=== PATIENT | male | born 1955 | race Caucasian/White ===

== ENCOUNTER 2017-06-08 15:55 | Inpatient (IN) | payer OTHER ==
[~2017-06-08] VITALS: Ht 182.9 cm; Wt 72.3 kg
[~2017-06-08 15:55] MED LIST: OMEP20CA59 PO
[2017-06-08] MEDS ORDERED: DILTIAZEM BOLUS / DRIP IV STA (16:12)
[2017-06-08 16:29] LABS: BASO % 0.3 %; BASO ABS # 0.03 K/uL (0-0.2); EOS % 0.3 %; EOS ABS # 0.03 K/uL (0-0.5); HEMATOCRIT 45.2 % (42-52); HEMOGLOBIN 15.5 g/dL (14.0-18.0); IG# 0.02 K/uL (0.00-0.02); LYMPH % 27.4 %; LYMPH ABS # 2.93 K/uL (1.2-3.4); MEAN CELL VOLUME 91.5 fL (80-100); MEAN CORPUSCULAR HEMOGLOBIN 31.4 pg (25-34); MEAN CORPUSCULAR HGB CONC 34.3 g/dl (32-36); MONO % 13.6 %; MONO ABS # 1.45 K/uL (0.11-0.59); NEUT % 58.2 %; NEUT ABS # 6.24 K/uL (1.4-6.5); PLATELET COUNT 311 K/uL (130-400)
[2017-06-08] MEDS ORDERED: DILTIAZEM BOLUS FROM BAG IV ONE (16:30)
[2017-06-08] MEDS: DILTIAZEM HCL INJ 125 MG in DEXTROSE 5% 100ML IV PRN ×2 (16:31→23:07)
--- NOTE | 2017-06-08 16:36 | DIAGNOSTIC IMAGING REPORT ---
CHEST ONE VIEW PORTABLE CLINICAL HISTORY: Chest pain. Shortness of breath. COMPARISON STUDY: No previous studies for comparison. FINDINGS: Lung volumes are normal. There are small bilateral pleural effusions. There is no pneumothorax. There is mild interstitial thickening which suggests pulmonary edema. There is no consolidation to suggest pneumonia. There is mild cardiomegaly. IMPRESSION: Mild pulmonary edema and small bilateral pleural effusions. Electronically signed by: Schuyler Vera M.D. 06/08/2017 4:34 PM Dictated Date/Time: 06/08/2017 4:34 PM
[2017-06-08] MEDS ORDERED: ASPI81TA28 PO (16:39)
[2017-06-08] MEDS ORDERED: PRLSR20 PO (16:39)
[2017-06-08] MEDS ORDERED: ATOR10TA82 PO (16:39)
[2017-06-08 16:54] LABS: CALCIUM 8.6 mg/dl (8.5-10.1); CREATININE 1.33 mg/dl (0.60-1.40); POTASSIUM 3.4 mmol/L (3.5-5.1)
[2017-06-08 16:59] LABS: CKMB 10.8 ng/ml (0.5-3.6)
[2017-06-08] MEDS ORDERED: DILTIAZEM HCL 5 MG/ML 5 ML VIAL IV STA (17:12)
[2017-06-08 18:34] LABS: INR 1.2 (0.9-1.1); PTT PATIENT 27.3 SECONDS (21.0-31.0)
[2017-06-08] MEDS ORDERED: NITROGLYCERIN 0.4 MG SL PER TAB CHARGE SL PRN (18:45)
[2017-06-08] MEDS ORDERED: ACETAMINOPHEN 325 MG TAB PO PRN (18:45)
[2017-06-08] MEDS ORDERED: POLYETHYLENE (MIRALAX) 17 GM PACK PO PRN (18:45)
[2017-06-08] MEDS ORDERED: METOPROLOL TARTRATE 1 MG/ML VIAL IV STA (18:53)
[2017-06-08] MEDS ORDERED: POTASSIUM CHLORIDE 20 MEQ TABCR PO ONE (19:00)
[2017-06-08] MEDS ORDERED: POTASSIUM CHLORIDE 10 MEQ TABCR PO STA (19:06)
[2017-06-08 19:28] LABS: INFLUENZA B ANTIGEN Neg for Influ B (NEG)
[2017-06-08] MEDS ORDERED: DILTIAZEM BOLUS / DRIP IV SCH (19:56)
--- NOTE | 2017-06-08 20:09 | History and Physical ---
History & Physical Date & Time of Service: Jun 08, 2017 at 19:11 Chief Complaint: Sob, Upset Stomach, Swollen Feet, Tachycardia Primary Care Physician: Riccardo Michel M.D. (MEDICAL) History of Present Illness Source: patient, clinic records, hospital records Pt is 62 y/o M with PMH dyslipidemia, GERD presented to ER from PCP's office for tachycardia. States yesterday woke up with palpitations and heart racing sensation that was continuous. Symptoms continued today. 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 Reports some anterior chest pressure. Reports increased CP and SOB with lying supine. Last night had to sleep sitting up secondary to SOB. Denies dizziness or syncope. Also c/o nausea since yesterday, no vomiting. States yesterday had 2 loose BM's , today reports normal BM. Denies melena or hematochezia or abdominal pain. Reports non-productive cough past 3 days. Woke up this morning and noticed bilateral foot edema. Pt with 8 pound weight gain over past month. Feels hasn't been urinating as much past 2 days. Denies cardiac or pulmonary problems in past. Drinking 4-5 bottles water daily. States normal appetite. Drinks 2 cups coffee daily. Has been taking mucinex past couple of days for cough. Denies ETOH use. Stopped smoking one week ago. Was smoking 4 cigarettes daily. Denies fever/chills, diaphoresis, KIMBALL, dizziness, syncope, vision changes, neck pain, hemoptysis, sore throat, choking, otalgia, rhinorrhea, paresthesias,rashes. In ER pt found to be in rapid a-fib rate 130's to 180's down to 130's after cardizem. Pt given cardizem 10mg, additional 10mg and on cardizem drip at 15/ hr. BP: 160/107 to 163/76 to 146/113. O2 sat initially 95% on RA, then to 90%, up to 94% on 3L NC. troponin 0.02. Since in ER and having decreased HR on Cardizem drip, pt states the CP and nausea has resolved Past Medical/Surgical History Medical Problems: (1) Dyslipidemia Status: Chronic (2) GERD (gastroesophageal reflux disease) Status: Chronic Surgical Problems: (1) H/O cataract removal with insertion of prosthetic lens Permanent Comment: left eye Status: Resolved (2) History of repair of retinal defect by laser photocoagulation Permanent Comment: left eye - 2009, right eye - 2012 Status: Resolved (3) Hx of appendectomy Status: Resolved (4) Hx of tonsillectomy Status: Resolved Family History FH: cardiovascular disease (Pt states brother with cardiac disorder, unsure) Hypertension Social History Smoking Status: Former Smoker (quit last week. smoked 4 cig/day for 50 years) Smokeless Tobacco Use: No Alcohol Use: none Drug Use: none Housing status: lives alone Occupational Status: employed Multi-Drug Resistant Organisms History of MDRO: No Allergies Coded Allergies: No Known Allergies (Unverified , 06/08/17) Home Medications Scheduled Aspirin (Aspirin Ec), 81 MG PO DAILY Atorvastatin (Lipitor), 10 MG PO DAILY Omeprazole (Prilosec), 20 MG PO DAILY Review of Systems Constitutional: No fever, No chills, No sweats Eyes: No worsening of vision, No eye pain, No redness, No discharge, No diplopia ENT: No unusual epistaxis, No nasal symptoms, No sore throat, No trouble swallowing Respiratory: + problem reported (see HPI) Cardiovascular: + problem reported (see HPI) Abdomen: + problem reported (see HPI) Musculoskeletal: No joint pain, No calf pain Genitourinary - Male: No hematuria, No dysuria, No urinary urgency Neurologic: No numbness/tingling, No vertigo Psychiatric: No depression symptoms, No anxiety Endocrine: No excessive thirst, No excessive urination Hematologic / Lymphatic: No abnormal bleeding/bruising, No clotting problems, No night sweats Integumentary: No rash, No itch Physical Exam Vital Signs Date Time Temp Pulse Resp B/P (MAP) Pulse Ox O2 Delivery O2 Flow Rate FiO2 06/08/17 17:59 148 20 147/121 93 Nasal Cannula 3.0 06/08/17 17:31 135 16 163/76 93 Nasal Cannula 3.0 06/08/17 16:58 155 160/90 94 Nasal Cannula 3.0 06/08/17 16:36 93 Nasal Cannula 3.0 06/08/17 16:35 90 Room Air 06/08/17 16:32 157 16 135/106 94 Room Air 06/08/17 16:32 94 Room Air 06/08/17 16:11 185 06/08/17 15:58 36.3 139 22 161/107 95 Room Air General Appearance: WD/WN, no apparent distress Head: normocephalic, atraumatic Eyes: normal inspection, PERRL, EOMI, sclerae normal ENT: hearing grossly normal, pharynx normal, + pertinent finding (slightly dry mucous membranes) Neck: supple, trachea midline Respiratory/Chest: chest non-tender, no respiratory distress, no accessory muscle use, + decreased breath sounds (bases bilaterally) Cardiovascular: + tachycardia, + irregularly irregular Abdomen/GI: normal bowel sounds, non tender, soft Extremities/Musculoskelatal: no calf tenderness, normal capillary refill, normal range of motion, non-tender, + pedal edema (2+ pitting edema pretibial bilaterally) Neurologic/Psych: alert, normal mood/affect, oriented x 3 Skin: warm/dry, + pertinent finding (+exoriations to left anterior upper chest/ shoulder and upper back (pt states scratched himself). no surrounding erythema, no discharge) Diagnostics Laboratory Results Results Past 24 Hours Test 06/08/17 16:15 06/08/17 18:48 Range/Units White Blood Count 10.70 4.8-10.8 K/uL Red Blood Count 4.94 4.7-6.1 M/uL Hemoglobin 15.5 14.0-18.0 g/dL Hematocrit 45.2 42-52 % Mean Corpuscular Volume 91.5 80-100 fL Mean Corpuscular Hemoglobin 31.4 25-34 pg Mean Corpuscular Hemoglobin Concent 34.3 32-36 g/dl Platelet Count 311 130-400 K/uL Mean Platelet Volume 11.0 7.4-10.4 fL Neutrophils (%) (Auto) 58.2 % Lymphocytes (%) (Auto) 27.4 % Monocytes (%) (Auto) 13.6 % Eosinophils (%) (Auto) 0.3 % Basophils (%) (Auto) 0.3 % Neutrophils # (Auto) 6.24 1.4-6.5 K/uL Lymphocytes # (Auto) 2.93 1.2-3.4 K/uL Monocytes # (Auto) 1.45 0.11-0.59 K/uL Eosinophils # (Auto) 0.03 0-0.5 K/uL Basophils # (Auto) 0.03 0-0.2 K/uL RDW Standard Deviation 47.0 36.4-46.3 fL RDW Coefficient of Variation 14.0 11.5-14.5 % Immature Granulocyte % (Auto) 0.2 % Immature Granulocyte # (Auto) 0.02 0.00-0.02 K/uL Prothrombin Time 12.9 9.0-12.0 SECONDS Prothromb Time International Ratio 1.2 0.9-1.1 Activated Partial Thromboplast Time 27.3 21.0-31.0 SECONDS Partial Thromboplastin Ratio 1.1 Sodium Level 138 136-145 mmol/L Potassium Level 3.4 3.5-5.1 mmol/L Chloride Level 103 98-107 mmol/L Carbon Dioxide Level 24 21-32 mmol/L Anion Gap 11.0 3-11 mmol/L Blood Urea Nitrogen 18 7-18 mg/dl Creatinine 1.33 0.60-1.40 mg/dl Est Creatinine Clear Calc Drug Dose 62.4 ml/min Estimated GFR () 65.5 Estimated GFR (Non- 56.5 BUN/Creatinine Ratio 13.4 10-20 Random Glucose 110 70-99 mg/dl Calcium Level 8.6 8.5-10.1 mg/dl Total Creatine Kinase 627 39-308 U/L Creatine Kinase MB 10.8 0.5-3.6 ng/ml Creatine Kinase MB Ratio 1.7 0-3.0 Troponin I 0.022 0-0.045 ng/ml Diagnostic Radiology CXR: IMPRESSION: Mild pulmonary edema and small bilateral pleural effusions. EKG EKG: atrial fibrillation, RVR, rate 178 Impression Assessment and Plan ATRIAL FIBRILLATION RVR new onset a-fib. symptoms started yesterday with palpitations, SOB, CP, nausea. HR 130's-180's in ER. Given 2 Cardizem 10mg bolus and on Cardizem drip at 15mg/hr and HR in 130's. pt reports no further CP or nausea and decreased SOB. negative initial troponin, suspect CP from rapid a-fib -Lopressor 5mg IV ordered, may need further lopressor - will monitor -continue Cardizem drip -trend troponin -magnesium and TSH labs added -heparin drip -echo -cardiology consult FLUID OVERLOAD Pt started with orthopnea, SOB yesterday. today noticed LE edema. pt with non- productive cough x 3 days. Weight gain of 8lbs past month. CXR: mild pulmonary edema, small bilateral effusions -echo -monitor I&O's and daily weight -cardiology consult -continue to monitor potassium, consider lasix dosage later -monitor prp HYPOKALEMIA K: 3.4 -replace -monitor prp DYSLIPIDEMIA Lipid panel 04/2017 - total: 116, LDL: 65, HDL: 34, Triglycerides: 87 -continue statin GERD -continue PPI DVT Prophylaxis -on heparin drip Disposition admit tele Full Code as per discussion with pt Follows with Dr Michel for routine care Pt was seen with Dr Webster. See addendum Level of Care Telemetry Resuscitation Status FULL RESUSCITATION VTE Prophylaxis VTE Risk Assessment Done? Y/N: Yes Risk Level: Moderate Given or contraindicated: Other Anticoagulation Note ATTENDING ADDENDUM Record reviewed. Patient interviewed and examined. Care coordinated with Mallika Keith PA-C. Please refer to her documentation for patient's history. Briefly, 62-year-old male with history of dyslipidemia and GERD. Developed chest pressure, palpitations, and dyspnea yesterday. Symptoms worse today. No prior history of cardiac disease. EXAM: General-no acute distress VS- as noted HEENT-anicteric Lungs-few bibasilar rales Cardiovascular-irregularly irregular, tachycardic; no murmur or gallop appreciated; + JVD; 1+ pretibial/pedal edema Abdomen-soft, nontender Extremities-no cyanosis or clubbing; no calf tenderness Neuro-alert . DATA: K 3.4. Other lab studies as noted. Chest x-ray demonstrated pulmonary vascular congestion and small bilateral pleural effusions. EKG performed at 1609 reviewed and demonstrated atrial fibrillation with a ventricular rate of 180/minute, slight ST depression inferior laterally, nonspecific T-wave changes. ASSESSMENT AND PLAN: New onset atrial fibrillation. Patient first noticed symptoms yesterday, but difficult to ascertain exact onset of arrhythmia. Started on intravenous diltiazem in the ED with some slowing of ventricular rate. Received a dose of intravenous metoprolol with further slowing of rate. IV heparin. Serum potassium 3.4; magnesium and TSH normal. Denies alcohol consumption. Correct hypokalemia. CHF possibly tachycardia-mediated. IV furosemide x 1 dose this evening. Check echocardiogram. Consult Cardiology. Please refer to JU Maloney's documentation for discussion of other issues. Bro Webster MD . Additional Copies To Riccardo Michel M.D. (MEDICAL)
[2017-06-08 20:17] VITALS: BP 124/99; PULSE 110; TEMP 36.7; O2SAT 93; Ht 182.9 cm; Wt 72.3 kg
[2017-06-08] MEDS ORDERED: IV FLUIDS COMPLETED PRN (21:00)
[2017-06-08] MEDS ORDERED: HEPARIN IV BOLUS 7,000 UNIT in SYRINGE 0 ML IV ONE (21:15)
--- NOTE | 2017-06-08 21:24 | EMERGENCY ROOM VISIT NOTE ---
History Report prepared by Gus: [place] Under the Supervision of: Dr. Wale Saldivar D.O. First contact with patient: 16:04 Chief Complaint: TACHYCARDIA Stated Complaint: SOB, UPSET STOMACH, SWOLLEN FEET, TACHYCARDIA History of Present Illness The patient is a 62 year old male who presents to the Emergency Room with complaints of chest pain and a tachycardic heart rate that began yesterday. The patient states that he can feel his heart racing and pain in his chest when he lays flat. The pain in not present currently, and only onsets when lays completely flat. He is also complaining of shortness of breath. The patient also notes that his feet are significantly swollen as compared to his baseline. The patient denies any history of an irregular heart beat or congestive heart failure. He also denies headache, change in vision, fevers, nausea, vomiting, diarrhea, pain with urination, and melena. Source of History: patient Onset: Yesterday Position: chest Modifying Factors (Worsening): other (Laying flat) Associated Symptoms: + chest pain, + SOB, No vomiting, No diarrhea, No urinary symptoms Note: Feet swollen. Review of Systems See HPI for pertinent positives & negatives. A total of 10 systems reviewed and were otherwise negative. Past Medical & Surgical Medical Problems: (1) Atrial fibrillation with RVR (2) Dyslipidemia (3) GERD (gastroesophageal reflux disease) Surgical Problems: (1) H/O cataract removal with insertion of prosthetic lens (2) History of repair of retinal defect by laser photocoagulation (3) Hx of appendectomy (4) Hx of tonsillectomy Hx of eye surgery Family History omitted secondary to age. Social History Smoking Status: Former Smoker Alcohol Use: none Occupation Status: employed Current/Historical Medications Scheduled Aspirin (Aspirin Ec), 81 MG PO DAILY Atorvastatin (Lipitor), 10 MG PO DAILY Omeprazole (Prilosec), 20 MG PO DAILY Allergies Coded Allergies: No Known Allergies (Unverified , 06/08/17) Physical Exam Vital Signs Date Time Temp Pulse Resp B/P (MAP) Pulse Ox O2 Delivery O2 Flow Rate FiO2 06/08/17 17:59 148 20 147/121 93 Nasal Cannula 3.0 06/08/17 17:31 135 16 163/76 93 Nasal Cannula 3.0 06/08/17 16:58 155 160/90 94 Nasal Cannula 3.0 06/08/17 16:36 93 Nasal Cannula 3.0 06/08/17 16:35 90 Room Air 06/08/17 16:32 157 16 135/106 94 Room Air 06/08/17 16:32 94 Room Air 06/08/17 16:11 185 06/08/17 15:58 36.3 139 22 161/107 95 Room Air Physical Exam GENERAL: Sitting up in bed, alert, chronically-ill appearing. Talking in full sentences. EYE EXAM: normal conjunctiva. OROPHARYNX: no exudate, no erythema, lips, buccal mucosa, and tongue normal and mucous membranes are moist NECK: supple, no nuchal rigidity, no adenopathy, non-tender. No JVD. LUNGS: Clear to auscultation. Normal chest wall mechanics HEART: no murmurs, S1 normal and S2 normal. Patient is tachycardic and irregularly irregular. ABDOMEN: abdomen soft, non-tender, normo-active bowel sounds, no masses, no rebound or guarding. BACK: Back is symmetrical on inspection and there is no deformity, no midline tenderness, no CVA tenderness. SKIN: no rashes and no bruising UPPER EXTREMITIES: upper extremities are grossly normal. LOWER EXTREMITIES: Pitting edema is present bilaterally. NEURO EXAM: Normal sensorium, cranial nerves II-XII grossly intact, normal speech, no gross weakness of arms, no gross weakness of legs. Medical Decision & Procedures ER Provider Diagnostic Interpretation: Radiology results as stated below per my review and the radiologist's interpretation: CHEST ONE VIEW PORTABLE CLINICAL HISTORY: Chest pain. Shortness of breath. COMPARISON STUDY: No previous studies for comparison. FINDINGS: Lung volumes are normal. There are small bilateral pleural effusions. There is no pneumothorax. There is mild interstitial thickening which suggests pulmonary edema. There is no consolidation to suggest pneumonia. There is mild cardiomegaly. IMPRESSION: Mild pulmonary edema and small bilateral pleural effusions. Electronically signed by: Schuyler Vera M.D. 06/08/2017 4:34 PM Dictated Date/Time: 06/08/2017 4:34 PM Laboratory Results 06/08/17 16:15 Red Blood Count 4.94, Mean Corpuscular Volume 91.5, Mean Corpuscular Hemoglobin 31.4, Mean Corpuscular Hemoglobin Concent 34.3, Mean Platelet Volume 11.0, Neutrophils (%) (Auto) 58.2, Lymphocytes (%) (Auto) 27.4, Monocytes (%) (Auto) 13.6, Eosinophils (%) (Auto) 0.3, Basophils (%) (Auto) 0.3, Neutrophils # (Auto ) 6.24, Lymphocytes # (Auto) 2.93, Monocytes # (Auto) 1.45, Eosinophils # (Auto ) 0.03, Basophils # (Auto) 0.03 06/08/17 16:15 Test 06/08/17 16:15 White Blood Count 10.70 K/uL (4.8-10.8) Red Blood Count 4.94 M/uL (4.7-6.1) Hemoglobin 15.5 g/dL (14.0-18.0) Hematocrit 45.2 % (42-52) Mean Corpuscular Volume 91.5 fL (80-100) Mean Corpuscular Hemoglobin 31.4 pg (25-34) Mean Corpuscular Hemoglobin Concent 34.3 g/dl (32-36) Platelet Count 311 K/uL (130-400) Mean Platelet Volume 11.0 fL (7.4-10.4) Neutrophils (%) (Auto) 58.2 % Lymphocytes (%) (Auto) 27.4 % Monocytes (%) (Auto) 13.6 % Eosinophils (%) (Auto) 0.3 % Basophils (%) (Auto) 0.3 % Neutrophils # (Auto) 6.24 K/uL (1.4-6.5) Lymphocytes # (Auto) 2.93 K/uL (1.2-3.4) Monocytes # (Auto) 1.45 K/uL (0.11-0.59) Eosinophils # (Auto) 0.03 K/uL (0-0.5) Basophils # (Auto) 0.03 K/uL (0-0.2) RDW Standard Deviation 47.0 fL (36.4-46.3) RDW Coefficient of Variation 14.0 % (11.5-14.5) Immature Granulocyte % (Auto) 0.2 % Immature Granulocyte # (Auto) 0.02 K/uL (0.00-0.02) Prothrombin Time 12.9 SECONDS (9.0-12.0) Prothromb Time International Ratio 1.2 (0.9-1.1) Activated Partial Thromboplast Time 27.3 SECONDS (21.0-31.0) Partial Thromboplastin Ratio 1.1 Anion Gap 11.0 mmol/L (3-11) Est Creatinine Clear Calc Drug Dose 62.4 ml/min Estimated GFR () 65.5 Estimated GFR (Non- 56.5 BUN/Creatinine Ratio 13.4 (10-20) Calcium Level 8.6 mg/dl (8.5-10.1) Magnesium Level 1.9 mg/dl (1.8-2.4) Total Creatine Kinase 627 U/L (39-308) Creatine Kinase MB 10.8 ng/ml (0.5-3.6) Creatine Kinase MB Ratio 1.7 (0-3.0) Troponin I 0.022 ng/ml (0-0.045) Thyroid Stimulating Hormone (TSH) 2.610 uIu/ml (0.300-4.500) Laboratory results per my review. Medications Administered Medications (Trade) Dose Ordered Sig/Bruce Route Start Time Stop Time Status Last Admin Dose Admin Diltiazem HCl (Cardizem Bolus From Bag) 10 mg ONE ONCE IV 06/08/17 16:30 06/08/17 16:31 DC 06/08/17 16:30 10 MG Diltiazem HCl 125 mg/Dextrose 125 ml @ 0 mls/hr Q0M PRN IV 06/08/17 16:30 07/08/17 16:29 06/08/17 16:31 5 MLS/HR Diltiazem HCl (Cardizem Inj) 10 mg NOW STAT IV 06/08/17 17:12 06/08/17 17:13 DC 06/08/17 17:27 10 MG ECG Per My Interpretation Indication: tachycardia Rate (beats per minute): 178 Rhythm: atrial fibrillation, other (With RVR) Findings: nonspecific-ST abn (Diffusely), other (Normal [place], ) ED Course ED COURSE: Vital signs were reviewed and showed tachycardic The patients medical record was reviewed The above diagnostic studies were performed and reviewed. ED treatments and interventions as stated above. 1605: The patient was evaluated in room B12. A complete history and physical examination was performed. 1612: Ordered Diltiazem HCl 1 IV. 1630: Ordered Diltiazem 10 mg IV. 1712: Ordered Diltiazem HCl 10 mg IV. 1734: I discussed the case with Dr. Darin Curiel at this time. He will evaluate the patient for further treatment. []: Upon reevaluation, the patient is [].I discussed my findings with the [ patient] and [] understands and agrees with the treatment plan. Based on the patients age, coexisting illnesses, exam and lab findings the decision to treat as an [inpatient][outpatient] was made. The patient remained stable while under my care. [The patient appeared well at the time of discharge.] [The patient will be evaluated for further management.] Medical Decision Differential diagnoses includes but is not limited to acute coronary syndrome, atrial fibrillation, myocardial infarction, pericarditis, pulmonary embolus, aortic dissection, pneumonia, pneumothorax, musculoskeletal, shingles, esophageal. Patient is a 62-year-old male who presents to the ER with palpitations and feeling short of breath and chest pain when laying flat. EKG shows A. fib with RVR and heart rate in the 180s. CBC along with BMP was unremarkable. Troponin was detectable but negative. TSH was normal. Patient was given fluids. He was given Cardizem drip and bolus. Cardizem drip was titrated up to 15. He was re-bolused with Cardizem. Heart rate eventually trended down to the 120s- 130s. Patient rested comfortably. He was given fluids. He was updated at bedside. He was admitted to internal medicine with A. fib with RVR. Medication Reconcilliation Current Medication List: was personally reviewed by me Blood Pressure Screening Patient's blood pressure: Elevated blood pressure Referred to hospitalist Consults Time Called: [phone] Consulting Physician: Dr. Darin Curiel Returned Call: [phone] I discussed the case with Dr. Darin Curiel at this time. He will evaluate the patient for further treatment. Impression Primary Impression: Atrial fibrillation with RVR Critical Care I have personally spent 55 minutes of critical care time in the direct management of this patient. This includes bedside care, interpretation of diagnostic studies, and testing, discussion with consultants, patient, and family members, and other required patient management activities. This 55 minutes is in excess of all separately billable procedures. Scribe Attestation The scribe's documentation has been prepared under my direction and personally reviewed by me in its entirety. I confirm that the note above accurately reflects all work, treatment, procedures, and medical decision making performed by me. Departure Information Dispostion Being Evaluated By Hospitalist Referrals Riccardo Michel M.D. (MEDICAL) (PCP) Patient Instructions My [facility]
[2017-06-08] MEDS: HEPARIN 25,000 UNIT/500ML D5W 500 ML IV PRN (22:02)
[2017-06-08] MEDS ORDERED: FUROSEMIDE INJ 20 MG in SYRINGE 0 ML IV ONE (23:30)
[2017-06-08 23:58] VITALS: BP 95/73; PULSE 90; TEMP 36.8; O2SAT 90
[2017-06-08 23:59] VITALS: O2SAT 90
[2017-06-09] VITALS (15 sets, daily range): BP systolic 92–166; BP diastolic 60–91; PULSE 58–124; TEMP 36.8–37.2; O2SAT 90–98
[2017-06-09 05:03] LABS: HEMATOCRIT 40.8 % (42-52); HEMOGLOBIN 13.7 g/dL (14.0-18.0); MEAN CELL VOLUME 92.3 fL (80-100); MEAN CORPUSCULAR HGB CONC 33.6 g/dl (32-36); MEAN PLATELET VOLUME 11.7 fL (7.4-10.4); PLATELET COUNT 268 K/uL (130-400); RED CELL DISTRIBUTION WIDTH CV 13.9 % (11.5-14.5); RED CELL DISTRIBUTION WIDTH SD 46.4 fL (36.4-46.3); WHITE BLOOD COUNT 8.88 K/uL (4.8-10.8)
[2017-06-09 05:05] LABS: CREATININE 1.12 mg/dl (0.60-1.40); POTASSIUM 3.8 mmol/L (3.5-5.1)
[2017-06-09 05:31] LABS: PTT PATIENT 51.2 SECONDS (21.0-31.0)
[2017-06-09] MEDS: HEPARIN 25,000 UNIT/500ML D5W 500 ML IV PRN (06:59)
[2017-06-09] MEDS: DILTIAZEM HCL INJ 125 MG in DEXTROSE 5% 100ML IV PRN ×4 (08:17→21:57)
[2017-06-09] MEDS: PANTOprazole SOD 40 MG TAB PO SCH (08:20)
[2017-06-09] MEDS: ASPIRIN 81 MG ECTAB PO SCH (08:20)
[2017-06-09] MEDS: ATORVASTATIN 10 MG TAB PO SCH (08:20)
--- NOTE | 2017-06-09 08:51 | ECHOCARDIOGRAM REPORT ---
*NOTICE TO RECEIVING [facility] This information is strictly Confidential and protected under [place] law. [place] law prohibits you from making any further disclosure of this information unless further disclosure is expressly permitted by the written consent of the person to whom it pertains or is authorized by law. A general authorization for the release of medical or other information is not sufficient for this purpose. Hospital accepts no responsibility if the information is made available to any other person, INCLUDING THE PATIENT. Interpretation Summary * Name: OPAL BOWEN Study Date: 06/09/2017 07:02 AM BP: 106/70 mmHg * Patient Location: [facility] HR: 88 * : 1955 (M/d/yyyy) Gender: Male Height: 72 in * Age: 62 yrs Ethnicity: [place] Weight: 191 lb * Ordering Physician: Mallika Maloney * Referring Physician: Self, Referred * Performed By: Asuncion Brewer RDCS * * Reason For Study: A-fib * BSA: 2.1 m2 * -- Conclusions -- * Mildly dilated LV chamber size with normal wall thickness. * Severely reduced LV systolic function with severe global hypokinesis, EF 25-30%. * Normal RV chamber size with reduced systolic function by TAPSE. * Moderate mitral regurgitation. * Moderate tricuspid regurgitation. * Mild biatrial enlargement. Procedure Details * A complete two-dimensional transthoracic echocardiogram was performed (2D, M-mode, Doppler and color flow Doppler). Left Ventricle * The left ventricle is mildly dilated. * There is normal left ventricular wall thickness. * Ejection Fraction = 25-30%. * Left ventricular systolic function is severely reduced. * There is severe global hypokinesis of the left ventricle. Right Ventricle * The right ventricular cavity size is normal (basal dimension <4.2 cm in right ventricular apical 4-chamber view). * The right ventricular systolic function is reduced as assessed by tricuspid annular plane systolic excursion (TAPSE) (TAPSE <1.6 cm). Atria * The left atrium is mildly dilated. * The right atrium is mildly dilated. * No ASD detected; PFO is not assessed. * The interatrial septum bows toward right atrium consistent with elevated left atrial pressure. Mitral Valve * The mitral valve anatomy is normal. * There is no mitral valve stenosis. * There is moderate mitral regurgitation. Tricuspid Valve * The tricuspid valve anatomy is normal. * There is no tricuspid stenosis. * There is moderate tricuspid regurgitation. Aortic Valve * The aortic valve is normal in structure and function. Pulmonic Valve * The pulmonary valve is not well seen, but the Doppler examination is normal without significant regurgitation or stenosis. Great Vessels * The aortic root and proximal ascending aorta are normal sized. Pericardium/Pleural * There is no pericardial effusion. MMode 2D Measurements and Calculations IVSd 0.70 cm LVIDd 5.7 cm LVIDs 4.9 cm LVPWd 1.0 cm IVS/LVPW 0.70 FS 14.2 % EDV(Teich) 160.8 ml ESV(Teich) 112.9 ml EF(Teich) 29.8 % EDV(cubed) 186.3 ml ESV(cubed) 117.8 ml EF(cubed) 36.8 % LV mass(C)d 185.1 grams LV mass(C)dI 88.6 grams/m\S\2 SV(Teich) 47.8 ml SI(Teich) 22.9 ml/m\S\2 SV(cubed) 68.5 ml SI(cubed) 32.8 ml/m\S\2 Ao root diam 3.1 cm Ao root area 7.3 cm\S\2 ACS 1.9 cm LA dimension 4.2 cm asc Aorta Diam 2.4 cm LA/Ao 1.4 LVOT diam 2.0 cm LVOT area 3.1 cm\S\2 LVAd ap4 31.6 cm\S\2 LVLd ap4 7.4 cm EDV(MOD-sp4) 108.9 ml EDV(sp4-el) 115.0 ml LVAs ap4 26.1 cm\S\2 LVLs ap4 7.0 cm ESV(MOD-sp4) 80.7 ml ESV(sp4-el) 82.7 ml EF(MOD-sp4) 25.9 % EF(sp4-el) 28.1 % LVAd ap2 35.6 cm\S\2 LVLd ap2 8.7 cm EDV(MOD-sp2) 126.0 ml EDV(sp2-el) 123.3 ml LVAs ap2 28.8 cm\S\2 LVLs ap2 7.7 cm ESV(MOD-sp2) 93.4 ml ESV(sp2-el) 92.1 ml EF(MOD-sp2) 25.8 % EF(sp2-el) 25.3 % LVLd %diff 15.2 % EDV(MOD-bp) 123.0 ml LVLs %diff 8.9 % ESV(MOD-bp) 90.8 ml EF(MOD-bp) 26.2 % SV(MOD-sp4) 28.2 ml SI(MOD-sp4) 13.5 ml/m\S\2 SV(MOD-sp2) 32.6 ml SI(MOD-sp2) 15.6 ml/m\S\2 SV(MOD-bp) 32.2 ml SI(MOD-bp) 15.4 ml/m\S\2 SV(sp4-el) 32.3 ml SI(sp4-el) 15.5 ml/m\S\2 SV(sp2-el) 31.2 ml SI(sp2-el) 14.9 ml/m\S\2 Doppler Measurements and Calculations MV E max td 77.6 cm/sec MV dec time 0.19 sec Ao V2 max 85.3 cm/sec Ao max PG 2.9 mmHg Ao max PG (full) 1.0 mmHg CASSIA(V,A) 2.5 cm\S\2 CASSIA(V,D) 2.5 cm\S\2 LV V1 max PG 1.9 mmHg LV V1 max 68.9 cm/sec TR max td 230.8 cm/sec
[2017-06-09] MEDS ORDERED: LISINOPRIL 5 MG TAB PO STA (09:24)
[2017-06-09] MEDS ORDERED: APIXABAN 2.5 MG TAB PO ONE (09:30)
--- NOTE | 2017-06-09 09:40 | Cardiology Consultation ---
Cardiology Consultation Date of Service Jun 09, 2017. Cardiology Consultation Indication: Consultation for heart failure and atrial fibrillation History: This is a 62-year-old male patient with no prior history of heart disease. The patient was in his usual state of health until 1-2 weeks ago when he started to notice some shortness of breath with activity. Over the weekend he was having difficulty lying flat. He states that every time he went to lay down he felt like somebody was putting him under water. Yesterday he noticed some lower extremity edema and worsening of his symptoms with tachycardia. Patient then presented to his PCP and was referred to the emergency department where he was found to be in atrial fibrillation with RVR and congestive heart failure. An echocardiogram completed today indicates his estimated left ventricular ejection fraction to be around 30%. The patient has been treated with IV diuretics and rate control with diltiazem. He is currently comfortable. Cardiac markers on admission have been negative. Patient has a history of cigarette smoking but stopped in April. He has no history of diabetes or hypertension. There is no strong family history of heart disease. Allergies: No known medical allergies Reported Home Medications Medications Dose Route/Sig Max Daily Dose Days Date Category Dose Instructions Lipitor (Atorvastatin Calcium) 10 Mg Tab 10 Mg PO DAILY 06/08/17 Reported Aspirin Ec (Aspirin) 81 Mg Tab 81 Mg PO DAILY 06/08/17 Reported Prilosec (Omeprazole) 20 Mg Capcr 20 Mg PO DAILY 06/08/17 Reported TAKE THIS MEDICATION ONCE DAILY 30 MINUTES BEFORE FIRST MEAL OF THE DAY Medical Problems: (1) Atrial fibrillation with RVR (2) Dyslipidemia (3) GERD (gastroesophageal reflux disease) Surgical Problems: (1) H/O cataract removal with insertion of prosthetic lens (2) History of repair of retinal defect by laser photocoagulation (3) Hx of appendectomy (4) Hx of tonsillectomy Social history: The patient stopped smoking several weeks ago. 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 Family history: Noncontributory General: The patient denies weight change, night sweats, fever, chills. Head: The patient denies headache and prior head trauma. Cardiovascular: The patient denies chest pain or chest discomfort, syncope and near syncope. Pulmonary: The patient denies cough, wheeze, pleurisy, hemoptysis, sputum, and excessive snoring. Gastrointestinal: The patient denies nausea, vomiting, diarrhea, constipation, bloating, hematemesis, hematochezia, and abdominal pain. Skin: The patient denies diaphoresis and rash. Musculoskeletal: The patient denies joint pain, joint swelling, myalgia, back pain, neck pain and prior injuries. Neurological: The patient denies prior stroke and seizures Vital Signs Past 12 Hours Date Time Temp Pulse Resp B/P (MAP) Pulse Ox O2 Delivery O2 Flow Rate FiO2 06/09/17 09:06 106 126/89 (101) 06/09/17 08:29 106 130/91 (104) 06/09/17 08:25 108 120/88 (99) 06/09/17 08:19 131/87 (102) 06/09/17 08:18 124 107/73 (84) 06/09/17 07:46 37.0 86 18 131/69 (89) 95 06/09/17 04:00 Room Air 06/09/17 03:30 37.0 88 18 106/70 (82) 92 Room Air 06/08/17 23:59 90 Room Air 06/08/17 23:58 36.8 90 18 95/73 (80) 90 Room Air General Appearance: Alert and Oriented x3. NAD. Head: Normocephalic Atraumatic. Eyes: PERRLA, EOMI, conjunctiva and sclera clear Neck: Supple. No carotid bruits noted. No JVD. No HJD. Respiratory: Breath sounds clear to auscultation bilaterally. No w/r/r. Cardiovascular: Reg rate and rhythm. S1 and S2 noted. No murmurs, rubs, gallops. PMI non displace. Abdomen: Normal bowel sounds, soft nontender. no abdominal bruits. Extremities: No edema, no clubbing or cyanosis. distal pulses 2/4 bilaterally. Neuro: No focal deficits. Psychiatric: Normal affect. Last 24 Hours Test 06/08/17 16:15 06/08/17 18:48 06/09/17 04:38 White Blood Count 10.70 K/uL 8.88 K/uL Red Blood Count 4.94 M/uL 4.42 M/uL Hemoglobin 15.5 g/dL 13.7 g/dL Hematocrit 45.2 % 40.8 % Mean Corpuscular Volume 91.5 fL 92.3 fL Mean Corpuscular Hemoglobin 31.4 pg 31.0 pg Mean Corpuscular Hemoglobin Concent 34.3 g/dl 33.6 g/dl Platelet Count 311 K/uL 268 K/uL Mean Platelet Volume 11.0 fL 11.7 fL Neutrophils (%) (Auto) 58.2 % Lymphocytes (%) (Auto) 27.4 % Monocytes (%) (Auto) 13.6 % Eosinophils (%) (Auto) 0.3 % Basophils (%) (Auto) 0.3 % Neutrophils # (Auto) 6.24 K/uL Lymphocytes # (Auto) 2.93 K/uL Monocytes # (Auto) 1.45 K/uL Eosinophils # (Auto) 0.03 K/uL Basophils # (Auto) 0.03 K/uL RDW Standard Deviation 47.0 fL 46.4 fL RDW Coefficient of Variation 14.0 % 13.9 % Immature Granulocyte % (Auto) 0.2 % Immature Granulocyte # (Auto) 0.02 K/uL Prothrombin Time 12.9 SECONDS Prothromb Time International Ratio 1.2 Activated Partial Thromboplast Time 27.3 SECONDS 51.2 SECONDS Partial Thromboplastin Ratio 1.1 2.0 Sodium Level 138 mmol/L 141 mmol/L Potassium Level 3.4 mmol/L 3.8 mmol/L Chloride Level 103 mmol/L 107 mmol/L Carbon Dioxide Level 24 mmol/L 26 mmol/L Anion Gap 11.0 mmol/L 8.0 mmol/L Blood Urea Nitrogen 18 mg/dl 18 mg/dl Creatinine 1.33 mg/dl 1.12 mg/dl Est Creatinine Clear Calc Drug Dose 62.4 ml/min 74.1 ml/min Estimated GFR () 65.5 80.6 Estimated GFR (Non- 56.5 69.5 BUN/Creatinine Ratio 13.4 15.9 Random Glucose 110 mg/dl 104 mg/dl Calcium Level 8.6 mg/dl 8.0 mg/dl Magnesium Level 1.9 mg/dl Total Creatine Kinase 627 U/L Creatine Kinase MB 10.8 ng/ml Creatine Kinase MB Ratio 1.7 Troponin I 0.022 ng/ml Thyroid Stimulating Hormone (TSH) 2.610 uIu/ml Influenza Type A Antigen Neg for Influ A Influenza Type B Antigen Neg for Influ B Impression: 1. Atrial fibrillation with RVR 2. Congestive heart failure 3. Idiopathic cardiomyopathy 4. History of cigarette smoking Recommendations: The patient should be placed on guideline directed medications for heart failure. His rate is currently being controlled with diltiazem however, I will start a low dose beta bryan with metoprolol at 12.5 mg twice a day. He diltiazem should be weaned off when clinically appropriate. He will started him on lisinopril 5 mg daily. I think it will be easier for the patient if we switch him to elevate this now and discontinue the heparin. I would continue the diuretic but he is currently not in congestive heart failure think we can start him on Lasix 20 mg orally twice a day. With his history of cigarette smoking and presentation he will eventually require an ischemic workup. TSH was within normal limits. We will follow along with you during his hospital stay.
[2017-06-09] MEDS: APIXABAN 2.5 MG TAB PO SCH ×2 (09:46→21:32)
--- NOTE | 2017-06-09 10:28 | Progress Note ---
Subjective Date of Service: Jun 09, 2017. Subjective Pt evaluation today including: conversation w/ patient, physical exam, lab review, review of studies, review of inpatient medication list Saw/examined the patient in room 239 States he feels better, intermittent palpitations, denies chest pain, denies shortness of breath Review of Systems Respiratory: No cough, No sputum, No wheezing, No shortness of breath, No dyspnea on exertion, No dyspnea at rest, No hemoptysis Cardiac: + palpitations, No chest pain, No edema Abdomen: No pain, No nausea, No vomiting, No diarrhea Medications Current Inpatient Medications Medications (Trade) Dose Ordered Sig/Bruce Route Start Time Stop Time Status Last Admin Dose Admin Diltiazem HCl 125 mg/Dextrose 125 ml @ 0 mls/hr Q0M PRN IV 06/08/17 16:30 07/08/17 16:29 06/09/17 08:17 15 MLS/HR Acetaminophen (Tylenol Tab) 650 mg Q4H PRN PO 06/08/17 18:45 07/08/17 18:44 Nitroglycerin (Nitrostat Tab) 0.4 mg UD PRN SL 06/08/17 18:45 07/08/17 18:44 Polyethylene (Miralax Powder Packet) 17 gm DAILY PRN PO 06/08/17 18:45 07/08/17 18:44 Aspirin (Ecotrin Tab) 81 mg DAILY PO 06/09/17 09:00 07/09/17 08:59 06/09/17 08:20 81 MG Atorvastatin Calcium (Lipitor Tab) 10 mg DAILY PO 06/09/17 09:00 07/09/17 08:59 06/09/17 08:20 10 MG Pantoprazole Sodium (Protonix Tab) 40 mg DAILY PO 06/09/17 09:00 07/09/17 08:59 06/09/17 08:20 40 MG Miscellaneous (Iv Fluids Completed) 1 ea PRN PRN N/A 06/08/17 21:00 06/08/18 20:59 Apixaban (Eliquis Tab) 5 mg BID PO 06/09/17 09:45 07/09/17 09:44 06/09/17 09:46 5 MG Metoprolol Tartrate (Lopressor Tab) 12.5 mg BID PO 06/09/17 21:00 07/09/17 20:59 Lisinopril (Zestril Tab) 5 mg QAM PO 06/10/17 09:00 07/10/17 08:59 Furosemide (Lasix Tab) 20 mg BID17 PO 06/09/17 17:00 07/09/17 16:59 Potassium Chloride (Klor-Con Tab) 20 meq QAM PO 06/10/17 09:00 07/10/17 08:59 Objective Vital Signs Date Time Temp Pulse Resp B/P (MAP) Pulse Ox O2 Delivery O2 Flow Rate FiO2 06/09/17 09:06 106 126/89 (101) 06/09/17 08:29 106 130/91 (104) 06/09/17 08:25 108 120/88 (99) 06/09/17 08:19 131/87 (102) 06/09/17 08:18 124 107/73 (84) 06/09/17 08:00 Room Air 06/09/17 07:46 37.0 86 18 131/69 (89) 95 06/09/17 04:00 Room Air 06/09/17 03:30 37.0 88 18 106/70 (82) 92 Room Air 06/08/17 23:59 90 Room Air 06/08/17 23:58 36.8 90 18 95/73 (80) 90 Room Air 06/08/17 20:17 36.7 110 22 124/99 93 Nasal Cannula 2.0 06/08/17 19:19 135 161/129 06/08/17 17:59 148 20 147/121 93 Nasal Cannula 3.0 06/08/17 17:31 135 16 163/76 93 Nasal Cannula 3.0 06/08/17 16:58 155 160/90 94 Nasal Cannula 3.0 06/08/17 16:36 93 Nasal Cannula 3.0 06/08/17 16:35 90 Room Air 06/08/17 16:32 157 16 135/106 94 Room Air 06/08/17 16:32 94 Room Air 06/08/17 16:11 185 06/08/17 15:58 36.3 139 22 161/107 95 Room Air Physical Exam General Appearance: no apparent distress ENT: + pertinent finding (edentulous) Respiratory/Chest: chest non-tender, lungs clear, normal breath sounds, no respiratory distress, no accessory muscle use Cardiovascular: + tachycardia, + irregularly irregular Abdomen: normal bowel sounds, non tender, soft Extremities: normal range of motion, non-tender, normal inspection, no pedal edema, no calf tenderness Neurologic/Psychiatric: no motor/sensory deficits, alert, normal mood/affect Skin: normal color Lymphatic: no adenopathy Laboratory Results Last 24 Hours Test 06/08/17 16:15 06/08/17 18:48 06/09/17 04:38 White Blood Count 10.70 K/uL 8.88 K/uL Red Blood Count 4.94 M/uL 4.42 M/uL Hemoglobin 15.5 g/dL 13.7 g/dL Hematocrit 45.2 % 40.8 % Mean Corpuscular Volume 91.5 fL 92.3 fL Mean Corpuscular Hemoglobin 31.4 pg 31.0 pg Mean Corpuscular Hemoglobin Concent 34.3 g/dl 33.6 g/dl Platelet Count 311 K/uL 268 K/uL Mean Platelet Volume 11.0 fL 11.7 fL Neutrophils (%) (Auto) 58.2 % Lymphocytes (%) (Auto) 27.4 % Monocytes (%) (Auto) 13.6 % Eosinophils (%) (Auto) 0.3 % Basophils (%) (Auto) 0.3 % Neutrophils # (Auto) 6.24 K/uL Lymphocytes # (Auto) 2.93 K/uL Monocytes # (Auto) 1.45 K/uL Eosinophils # (Auto) 0.03 K/uL Basophils # (Auto) 0.03 K/uL RDW Standard Deviation 47.0 fL 46.4 fL RDW Coefficient of Variation 14.0 % 13.9 % Immature Granulocyte % (Auto) 0.2 % Immature Granulocyte # (Auto) 0.02 K/uL Prothrombin Time 12.9 SECONDS Prothromb Time International Ratio 1.2 Activated Partial Thromboplast Time 27.3 SECONDS 51.2 SECONDS Partial Thromboplastin Ratio 1.1 2.0 Sodium Level 138 mmol/L 141 mmol/L Potassium Level 3.4 mmol/L 3.8 mmol/L Chloride Level 103 mmol/L 107 mmol/L Carbon Dioxide Level 24 mmol/L 26 mmol/L Anion Gap 11.0 mmol/L 8.0 mmol/L Blood Urea Nitrogen 18 mg/dl 18 mg/dl Creatinine 1.33 mg/dl 1.12 mg/dl Est Creatinine Clear Calc Drug Dose 62.4 ml/min 74.1 ml/min Estimated GFR () 65.5 80.6 Estimated GFR (Non- 56.5 69.5 BUN/Creatinine Ratio 13.4 15.9 Random Glucose 110 mg/dl 104 mg/dl Calcium Level 8.6 mg/dl 8.0 mg/dl Magnesium Level 1.9 mg/dl Total Creatine Kinase 627 U/L Creatine Kinase MB 10.8 ng/ml Creatine Kinase MB Ratio 1.7 Troponin I 0.022 ng/ml Thyroid Stimulating Hormone (TSH) 2.610 uIu/ml Influenza Type A Antigen Neg for Influ A Influenza Type B Antigen Neg for Influ B Assessment and Plan This is a 62 year old male with a PMH of HLD, GERD - presents with palpitations - subsequently found to have atrial fibrillation with RVR and later discovered a significantly reduced LVEF [place]set [place] Fibrillation with RVR patient presented with rates in the 150s-160s given IV Lopressor and then a Cardizem ggt rates improved to lower 100s appreciate cardiology input started on Metoprolol 12.5mg BID - with plans to wean off Cardizem drip IV heparin ggt changed to Eliquis case management consulted to find out the ortega of Eliquis Cardiomyopathy Systolic CHF likely a 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 echo shows an LVEF of 25-30% with severe global hypokinesis of the left ventricle should have a repeat echo some time as outpatient after heart rates are controlled will need stress test at some point due to risk factors (HLD, tobacco use) started on b-bryan, ETHAN-I as per cardiology started on Lasix daily as per cardiology as well HLD may need to increase this dose, but for now will continue home dose of statin GERD PPI DVT ppx Eliquis FULL CODE
[2017-06-09] MEDS: FUROSEMIDE 20 MG TAB PO SCH (17:17)
[2017-06-09] MEDS: METOPROLOL TARTRATE 25 MG TAB PO SCH (20:35)
[2017-06-10] VITALS (9 sets, daily range): BP systolic 93–134; BP diastolic 60–89; PULSE 75–153; TEMP 36.5–37; O2SAT 90–96
[2017-06-10 07:24] LABS: HEMATOCRIT 40.3 % (42-52); HEMOGLOBIN 13.7 g/dL (14.0-18.0); MEAN CELL VOLUME 91.6 fL (80-100); MEAN CORPUSCULAR HEMOGLOBIN 31.1 pg (25-34); PLATELET COUNT 283 K/uL (130-400); RED CELL DISTRIBUTION WIDTH SD 46.6 fL (36.4-46.3); WHITE BLOOD COUNT 7.26 K/uL (4.8-10.8)
[2017-06-10 07:35] LABS: PTT PATIENT 29.3 SECONDS (21.0-31.0)
[2017-06-10 07:52] LABS: CALCIUM 8.1 mg/dl (8.5-10.1); CREATININE 1.08 mg/dl (0.60-1.40); POTASSIUM 3.7 mmol/L (3.5-5.1)
[2017-06-10] MEDS: APIXABAN 2.5 MG TAB PO SCH ×2 (08:10→20:11)
[2017-06-10] MEDS: PANTOprazole SOD 40 MG TAB PO SCH (08:11)
[2017-06-10] MEDS: ATORVASTATIN 10 MG TAB PO SCH (08:11)
[2017-06-10] MEDS: METOPROLOL TARTRATE 25 MG TAB PO SCH (08:11)
[2017-06-10] MEDS: FUROSEMIDE 20 MG TAB PO SCH ×2 (08:12→15:51)
[2017-06-10] MEDS: ASPIRIN 81 MG ECTAB PO SCH (08:12)
[2017-06-10] MEDS: POTASSIUM CHLORIDE 20 MEQ TABCR PO SCH (08:55)
[2017-06-10] MEDS ORDERED: LISINOPRIL 5 MG TAB PO SCH (09:00)
--- NOTE | 2017-06-10 09:28 | Cardiology Follow-Up ---
Subjective Subjective Date of Service: Jun 10, 2017. Pt evaluation today including: conversation w/ patient, physical exam, chart review, lab review, review of studies, review of inpatient medication list Additional Details: The patient had an uneventful night. His heart rates have decreased. He remains in a persistent asymptomatic atrial fibrillation. He has no new cardiac complaints today. He is tolerating his medications. Problem List Medical Problems: (1) Atrial fibrillation with RVR (2) Dyslipidemia (3) GERD (gastroesophageal reflux disease) Surgical Problems: (1) H/O cataract removal with insertion of prosthetic lens (2) History of repair of retinal defect by laser photocoagulation (3) Hx of appendectomy (4) Hx of tonsillectomy Review of Systems Respiratory: No cough, No sputum, No wheezing, No shortness of breath, No dyspnea on exertion, No dyspnea at rest, No hemoptysis Cardiac: + palpitations, No chest pain, No edema Abdomen: No pain, No nausea, No vomiting, No diarrhea Objective Vital Signs Last Vital Signs Documentation Date Time Temp Pulse Resp B/P (MAP) Pulse Ox O2 Delivery O2 Flow Rate FiO2 06/10/17 08:00 Room Air 06/10/17 07:19 36.8 87 18 122/80 (94) 90 06/08/17 20:17 2.0 Physical Exam: General Appearance: no apparent distress ENT: + pertinent finding (edentulous) Respiratory/Chest: chest non-tender, lungs clear, normal breath sounds, no respiratory distress, no accessory muscle use Cardiovascular: + tachycardia, + irregularly irregular Abdomen: normal bowel sounds, non tender, soft Extremities: normal range of motion, non-tender, normal inspection, no pedal edema, no calf tenderness Neurologic/Psychiatric: no motor/sensory deficits, alert, normal mood/affect Skin: normal color Lymphatic: no adenopathy Assessment and Plan Impression: 1. Congestive heart failure resolving 2. Idiopathic dilated cardiomyopathy 3. Persistent atrial fibrillation Recommendations: I will increase the patient's lisinopril to 10 mg daily. He is now off of diltiazem with heart rates controlled with metoprolol. I discussed with the patient anticoagulation and its risks versus benefits. For now he will be on a factor X A inhibitor. Plan in the future may be for an elective cardioversion. He will also need an ischemic workup as an outpatient. Will titrate guideline directed medicine.
[2017-06-10] MEDS ORDERED: LISINOPRIL 5 MG TAB PO ONE (10:00)
--- NOTE | 2017-06-10 10:28 | Progress Note ---
Subjective Date of Service: Jun 10, 2017. Subjective Pt evaluation today including: conversation w/ patient, physical exam, lab review, review of studies, review of inpatient medication list Saw/examined the patient in room 239 He has intermittent palpitations Denies chest pain or shortness of breath No lower extremity edema Review of Systems Respiratory: No cough, No sputum, No wheezing, No shortness of breath, No dyspnea on exertion, No dyspnea at rest, No hemoptysis Cardiac: + palpitations, No chest pain, No edema Medications Current Inpatient Medications Medications (Trade) Dose Ordered Sig/Bruce Route Start Time Stop Time Status Last Admin Dose Admin Acetaminophen (Tylenol Tab) 650 mg Q4H PRN PO 06/08/17 18:45 07/08/17 18:44 Nitroglycerin (Nitrostat Tab) 0.4 mg UD PRN SL 06/08/17 18:45 07/08/17 18:44 Polyethylene (Miralax Powder Packet) 17 gm DAILY PRN PO 06/08/17 18:45 07/08/17 18:44 Aspirin (Ecotrin Tab) 81 mg DAILY PO 06/09/17 09:00 07/09/17 08:59 06/10/17 08:12 81 MG Atorvastatin Calcium (Lipitor Tab) 10 mg DAILY PO 06/09/17 09:00 07/09/17 08:59 06/10/17 08:11 10 MG Pantoprazole Sodium (Protonix Tab) 40 mg DAILY PO 06/09/17 09:00 07/09/17 08:59 06/10/17 08:11 40 MG Miscellaneous (Iv Fluids Completed) 1 ea PRN PRN N/A 06/08/17 21:00 06/08/18 20:59 Apixaban (Eliquis Tab) 5 mg BID PO 06/09/17 09:45 07/09/17 09:44 06/10/17 08:10 5 MG Metoprolol Tartrate (Lopressor Tab) 12.5 mg BID PO 06/09/17 21:00 07/09/17 20:59 06/10/17 08:11 12.5 MG Furosemide (Lasix Tab) 20 mg BID17 PO 06/09/17 17:00 07/09/17 16:59 06/10/17 08:12 20 MG Potassium Chloride (Klor-Con Tab) 20 meq QAM PO 06/10/17 09:00 07/10/17 08:59 06/10/17 08:55 20 MEQ Lisinopril (Zestril Tab) 10 mg QAM PO 06/11/17 09:00 07/10/17 08:59 Objective Vital Signs Date Time Temp Pulse Resp B/P (MAP) Pulse Ox O2 Delivery O2 Flow Rate FiO2 06/10/17 08:00 Room Air 06/10/17 07:19 36.8 87 18 122/80 (94) 90 Room Air 06/10/17 04:00 Room Air 06/10/17 03:30 36.6 75 21 93/60 (71) 92 Room Air 06/09/17 23:59 90 Room Air 06/09/17 23:44 37.2 81 16 92/60 (71) 90 Room Air 06/09/17 20:38 78 113/73 (86) 06/09/17 20:00 90 Room Air 06/09/17 19:52 36.8 73 22 92/65 (74) 90 Room Air 06/09/17 16:00 96 Room Air 06/09/17 15:16 36.8 79 20 125/63 (83) 96 06/09/17 12:00 Room Air 06/09/17 11:45 36.9 74 18 129/68 (88) 98 Physical Exam General Appearance: no apparent distress ENT: + pertinent finding (+edentulous) Respiratory/Chest: chest non-tender, lungs clear, normal breath sounds, no respiratory distress, no accessory muscle use Cardiovascular: no edema, no murmur, + irregularly irregular Extremities: normal range of motion, non-tender, normal inspection, no pedal edema, no calf tenderness Laboratory Results Last 24 Hours Test 06/10/17 06:48 White Blood Count 7.26 K/uL Red Blood Count 4.40 M/uL Hemoglobin 13.7 g/dL Hematocrit 40.3 % Mean Corpuscular Volume 91.6 fL Mean Corpuscular Hemoglobin 31.1 pg Mean Corpuscular Hemoglobin Concent 34.0 g/dl RDW Standard Deviation 46.6 fL RDW Coefficient of Variation 14.0 % Platelet Count 283 K/uL Mean Platelet Volume 11.0 fL Activated Partial Thromboplast Time 29.3 SECONDS Partial Thromboplastin Ratio 1.1 Sodium Level 138 mmol/L Potassium Level 3.7 mmol/L Chloride Level 106 mmol/L Carbon Dioxide Level 24 mmol/L Anion Gap 8.0 mmol/L Blood Urea Nitrogen 18 mg/dl Creatinine 1.08 mg/dl Est Creatinine Clear Calc Drug Dose 76.9 ml/min Estimated GFR () 84.2 Estimated GFR (Non- 72.7 BUN/Creatinine Ratio 17.1 Random Glucose 100 mg/dl Calcium Level 8.1 mg/dl Assessment and Plan This is a 62 year old male with a PMH of HLD, GERD - presents with palpitations - subsequently found to have atrial fibrillation with RVR and later discovered a significantly reduced LVEF New Onset [place] Fibrillation with RVR 06/10 appreciate cardio input he is off of Cardizem ggt will continue Lopressor and Lisinopril for now HRs are controlled for now continue Eliquis 06/09 patient presented with rates in the 150s-160s given IV Lopressor and then a Cardizem ggt rates improved to lower 100s appreciate cardiology input started on Metoprolol 12.5mg BID - with plans to wean off Cardizem drip IV heparin ggt changed to Eliquis case management consulted to find out the ortega of Eliquis Cardiomyopathy Systolic CHF likely a 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 echo shows an LVEF of 25-30% with severe global hypokinesis of the left ventricle should have a repeat echo some time as outpatient after heart rates are controlled will need stress test at some point due to risk factors (HLD, tobacco use) started on b-bryan, ETHAN-I as per cardiology started on Lasix daily as per cardiology as well HLD may need to increase this dose, but for now will continue home dose of statin GERD PPI DVT ppx Eliquis FULL CODE
[2017-06-10] MEDS ORDERED: METOPROLOL TARTRATE 25 MG TAB PO ONE ×2 (19:27→21:38)
[2017-06-10] MEDS ORDERED: METOPROLOL TARTRATE 1 MG/ML VIAL IV STA (19:33)
[2017-06-10] MEDS ORDERED: POTASSIUM CHLORIDE 10 MEQ TABCR PO STA (19:34)
[2017-06-10] MEDS ORDERED: DIGOXIN IV 250 MCG in SYRINGE 9 ML IV STA (19:35)
[2017-06-10] MEDS ORDERED: MAGNESIUM SULFATE 1GM / D5W 1 GM in PREMIXED IN D5W 100 ML IV ONE (21:45)
[2017-06-11] VITALS (8 sets, daily range): BP systolic 110–139; BP diastolic 81–97; PULSE 90–106; TEMP 36.5–37; O2SAT 90–99
[2017-06-11] MEDS ORDERED: METOPROLOL TARTRATE 25 MG TAB PO ONE ×3 (01:58→10:00)
[2017-06-11] MEDS ORDERED: DIGOXIN IV 250 MCG in SYRINGE 9 ML IV ONE (02:15)
[2017-06-11 02:26] LABS: BASO % 0.1 %; BASO ABS # 0.01 K/uL (0-0.2); EOS % 0.9 %; EOS ABS # 0.08 K/uL (0-0.5); HEMATOCRIT 43.4 % (42-52); HEMOGLOBIN 14.8 g/dL (14.0-18.0); IG# 0.01 K/uL (0.00-0.02); LYMPH % 27.1 %; MEAN CELL VOLUME 91.4 fL (80-100); MEAN CORPUSCULAR HEMOGLOBIN 31.2 pg (25-34); MEAN CORPUSCULAR HGB CONC 34.1 g/dl (32-36); MEAN PLATELET VOLUME 10.9 fL (7.4-10.4); MONO % 11.8 %; PLATELET COUNT 302 K/uL (130-400); RED CELL DISTRIBUTION WIDTH CV 14.1 % (11.5-14.5)
[2017-06-11 02:50] LABS: ALBUMIN 3.1 gm/dl (3.4-5.0); CALCIUM 8.2 mg/dl (8.5-10.1); CREATININE 1.1 mg/dl (0.60-1.40); POTASSIUM 4.1 mmol/L (3.5-5.1)
[2017-06-11] MEDS: ATORVASTATIN 10 MG TAB PO SCH (08:23)
[2017-06-11] MEDS: PANTOprazole SOD 40 MG TAB PO SCH (08:23)
[2017-06-11] MEDS: APIXABAN 2.5 MG TAB PO SCH ×2 (08:24→20:57)
[2017-06-11] MEDS: POTASSIUM CHLORIDE 20 MEQ TABCR PO SCH (08:24)
[2017-06-11] MEDS: ASPIRIN 81 MG ECTAB PO SCH (08:24)
[2017-06-11] MEDS: FUROSEMIDE 20 MG TAB PO SCH ×2 (08:24→15:49)
[2017-06-11] MEDS: LISINOPRIL 10 MG TAB PO SCH (08:25)
[2017-06-11] MEDS ORDERED: METOPROLOL TARTRATE 25 MG TAB PO SCH ×5 (09:00→21:00)
[2017-06-11] MEDS ORDERED: DILTIAZEM HCL 30 MG TAB PO ONE ×2 (09:00→16:00)
--- NOTE | 2017-06-11 09:11 | Progress Note ---
Subjective Date of Service: Jun 11, 2017. Subjective Pt evaluation today including: conversation w/ patient, physical exam, lab review, review of studies, review of inpatient medication list Saw/examined the patient in room 239 He's doing well, no palpitations/shortness of breath/chest pain to note had HRs in the 160s-190s late last evening (06/10) HRs were initially improving with digoxin -- HRs now back up to 140s; currently asymptomatic Review of Systems Constitutional: No fever, No chills Respiratory: No cough, No sputum, No wheezing, No shortness of breath, No dyspnea on exertion, No dyspnea at rest, No hemoptysis Cardiac: No chest pain, No edema, No palpitations Medications Current Inpatient Medications Medications (Trade) Dose Ordered Sig/Bruce Route Start Time Stop Time Status Last Admin Dose Admin Acetaminophen (Tylenol Tab) 650 mg Q4H PRN PO 06/08/17 18:45 07/08/17 18:44 Nitroglycerin (Nitrostat Tab) 0.4 mg UD PRN SL 06/08/17 18:45 07/08/17 18:44 Polyethylene (Miralax Powder Packet) 17 gm DAILY PRN PO 06/08/17 18:45 07/08/17 18:44 Aspirin (Ecotrin Tab) 81 mg DAILY PO 06/09/17 09:00 07/09/17 08:59 06/11/17 08:24 81 MG Atorvastatin Calcium (Lipitor Tab) 10 mg DAILY PO 06/09/17 09:00 07/09/17 08:59 06/11/17 08:23 10 MG Pantoprazole Sodium (Protonix Tab) 40 mg DAILY PO 06/09/17 09:00 07/09/17 08:59 06/11/17 08:23 40 MG Miscellaneous (Iv Fluids Completed) 1 ea PRN PRN N/A 06/08/17 21:00 06/08/18 20:59 Apixaban (Eliquis Tab) 5 mg BID PO 06/09/17 09:45 07/09/17 09:44 06/11/17 08:24 5 MG Furosemide (Lasix Tab) 20 mg BID17 PO 06/09/17 17:00 07/09/17 16:59 06/11/17 08:24 20 MG Potassium Chloride (Klor-Con Tab) 20 meq QAM PO 06/10/17 09:00 07/10/17 08:59 06/11/17 08:24 20 MEQ Lisinopril (Zestril Tab) 10 mg QAM PO 06/11/17 09:00 07/10/17 08:59 06/11/17 08:25 10 MG Metoprolol Tartrate (Lopressor Tab) 25 mg TID PO 06/11/17 21:00 07/09/17 20:59 Diltiazem HCl (Cardizem Tab) 30 mg NOW ONCE PO 06/11/17 09:00 06/11/17 09:01 Objective Vital Signs Date Time Temp Pulse Resp B/P (MAP) Pulse Ox O2 Delivery O2 Flow Rate FiO2 06/11/17 07:47 36.9 90 18 137/92 (107) 99 06/11/17 05:53 133/97 (109) 06/11/17 04:00 Room Air 06/11/17 03:30 36.9 104 20 124/94 (104) 91 Room Air 06/11/17 02:19 158 06/11/17 02:15 139/95 (110) 06/11/17 00:00 Room Air 06/10/17 23:50 36.5 102 20 117/78 (91) 90 Room Air 06/10/17 21:27 134/80 (98) 06/10/17 20:13 145 06/10/17 20:00 Nasal Cannula 3.0 06/10/17 19:43 36.8 114 18 110/83 (92) 91 Nasal Cannula 3.0 06/10/17 19:24 153 06/10/17 19:23 113/89 (97) 06/10/17 15:44 Room Air 06/10/17 15:10 37.0 109 17 112/76 (88) 92 Room Air 06/10/17 11:51 Room Air 06/10/17 11:10 36.8 89 18 107/75 (86) 96 Physical Exam General Appearance: no apparent distress Respiratory/Chest: lungs clear, normal breath sounds, no respiratory distress, no accessory muscle use Cardiovascular: + tachycardia, + irregularly irregular Neurologic/Psychiatric: no motor/sensory deficits, alert, normal mood/affect Laboratory Results Last 24 Hours Test 06/10/17 19:41 06/11/17 02:06 Magnesium Level 1.8 mg/dl 2.0 mg/dl White Blood Count 8.50 K/uL Red Blood Count 4.75 M/uL Hemoglobin 14.8 g/dL Hematocrit 43.4 % Mean Corpuscular Volume 91.4 fL Mean Corpuscular Hemoglobin 31.2 pg Mean Corpuscular Hemoglobin Concent 34.1 g/dl Platelet Count 302 K/uL Mean Platelet Volume 10.9 fL Neutrophils (%) (Auto) 60.0 % Lymphocytes (%) (Auto) 27.1 % Monocytes (%) (Auto) 11.8 % Eosinophils (%) (Auto) 0.9 % Basophils (%) (Auto) 0.1 % Neutrophils # (Auto) 5.10 K/uL Lymphocytes # (Auto) 2.30 K/uL Monocytes # (Auto) 1.00 K/uL Eosinophils # (Auto) 0.08 K/uL Basophils # (Auto) 0.01 K/uL RDW Standard Deviation 47.0 fL RDW Coefficient of Variation 14.1 % Immature Granulocyte % (Auto) 0.1 % Immature Granulocyte # (Auto) 0.01 K/uL Sodium Level 136 mmol/L Potassium Level 4.1 mmol/L Chloride Level 106 mmol/L Carbon Dioxide Level 24 mmol/L Anion Gap 6.0 mmol/L Blood Urea Nitrogen 19 mg/dl Creatinine 1.10 mg/dl Est Creatinine Clear Calc Drug Dose 75.5 ml/min Estimated GFR () 82.4 Estimated GFR (Non- 71.1 BUN/Creatinine Ratio 17.6 Random Glucose 104 mg/dl Calcium Level 8.2 mg/dl Albumin 3.1 gm/dl Assessment and Plan This is a 62 year old male with a PMH of HLD, GERD - presents with palpitations - subsequently found to have atrial fibrillation with RVR and later discovered a significantly reduced LVEF New Onset [place] Fibrillation with RVR 3/2 HRs in the 140s currently this AM cardiology ordered Cardizem 30mg PO x1 already received digoxin continue Eliquis 06/10 appreciate cardio input he is off of Cardizem ggt will continue Lopressor and Lisinopril for now HRs are controlled for now continue Eliquis 06/09 patient presented with rates in the 150s-160s given IV Lopressor and then a Cardizem ggt rates improved to lower 100s appreciate cardiology input started on Metoprolol 12.5mg BID - with plans to wean off Cardizem drip IV heparin ggt changed to Eliquis case management consulted to find out the ortega of Eliquis Cardiomyopathy Systolic CHF likely a 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 echo shows an LVEF of 25-30% with severe global hypokinesis of the left ventricle should have a repeat echo some time as outpatient after heart rates are controlled will need stress test at some point due to risk factors (HLD, tobacco use) started on b-bryan, ETHAN-I as per cardiology started on Lasix daily as per cardiology as well HLD may need to increase this dose, but for now will continue home dose of statin GERD PPI DVT ppx Eliquis FULL CODE
[2017-06-11] MEDS ORDERED: NURSING VERBAL MED ORDER ONE ×3 (09:45→15:30)
--- NOTE | 2017-06-11 11:32 | Cardiology Follow-Up ---
Subjective Subjective Date of Service: Jun 11, 2017. Pt evaluation today including: conversation w/ patient, physical exam, chart review, lab review, review of studies, review of inpatient medication list Additional Details: Pt seen and examined, states that he feels fine. Denies cp, sob, palpitations, lightheadedness or dizziness. Called by NSG this AM, rates became significantly elevated overnight after being well controlled. Multiple doses of metoprolol tartrate given with significant improvement. Tele reviewed: atrial fibrillation with RVR Review of Systems Constitutional: No fever, No chills Respiratory: No cough, No sputum, No wheezing, No shortness of breath, No dyspnea on exertion, No dyspnea at rest, No hemoptysis Cardiac: No chest pain, No edema, No palpitations Abdomen: No pain, No nausea, No vomiting, No diarrhea Objective Vital Signs Last Vital Signs Documentation Date Time Temp Pulse Resp B/P (MAP) Pulse Ox O2 Delivery O2 Flow Rate FiO2 06/11/17 08:00 Room Air 06/11/17 07:47 36.9 90 18 137/92 (107) 99 06/10/17 20:00 3.0 Physical Exam: General Appearance: WD/WN, no apparent distress Eyes: bilateral eyes normal inspection, bilateral eyes PERRL, bilateral eyes EOMI ENT: normal ENT inspection, hearing grossly normal, pharynx normal, + pertinent finding (+edentulous) Neck: supple, no adenopathy, thyroid normal, no JVD, no carotid bruits, trachea midline Respiratory/Chest: lungs clear, normal breath sounds, no respiratory distress, no accessory muscle use Cardiovascular: + tachycardia, + irregularly irregular Abdomen: normal bowel sounds, non tender, soft Extremities: normal range of motion, non-tender, normal inspection, no pedal edema, no calf tenderness 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 atrial fibrillation RVR was rate controlled on beta bryan only yesterday but not back with rapid ventricular response calcium channel bryan not the preferred agent for rate control in the setting of decreased EF, however, may be necessary should rates not improve on beta bryan alone will uptitrate metoprolol to 50mg tid now given a single dose of cardizem 30mg po this AM will follow closely cont Eliquis 2. newly discovered cardiomyopathy likely tachycardia induced given clinical context will control rates and follow closely cont lisinopril and lasix
[2017-06-11] MEDS: METOPROLOL TARTRATE 50 MG TAB PO SCH (17:13)
[2017-06-11] MEDS: DILTIAZEM HCL 30 MG TAB PO SCH (20:57)
[2017-06-12] VITALS (9 sets, daily range): BP systolic 103–138; BP diastolic 52–99; PULSE 67–103; TEMP 36.4–37; O2SAT 91–96
[2017-06-12] MEDS: METOPROLOL TARTRATE 50 MG TAB PO SCH ×5 (00:13→23:46)
[2017-06-12 06:43] LABS: HEMATOCRIT 46.7 % (42-52); HEMOGLOBIN 15.9 g/dL (14.0-18.0); MEAN CELL VOLUME 90.9 fL (80-100); MEAN CORPUSCULAR HEMOGLOBIN 30.9 pg (25-34); MEAN PLATELET VOLUME 10.6 fL (7.4-10.4); PLATELET COUNT 331 K/uL (130-400); RED CELL DISTRIBUTION WIDTH SD 46.4 fL (36.4-46.3); WHITE BLOOD COUNT 7.34 K/uL (4.8-10.8)
[2017-06-12 07:12] LABS: CALCIUM 8.8 mg/dl (8.5-10.1); CREATININE 0.88 mg/dl (0.60-1.40)
[2017-06-12] MEDS: FUROSEMIDE 20 MG TAB PO SCH ×2 (08:24→17:15)
[2017-06-12] MEDS: PANTOprazole SOD 40 MG TAB PO SCH (08:24)
[2017-06-12] MEDS: ASPIRIN 81 MG ECTAB PO SCH (08:25)
[2017-06-12] MEDS: APIXABAN 2.5 MG TAB PO SCH ×2 (08:25→20:50)
[2017-06-12] MEDS: DILTIAZEM HCL 30 MG TAB PO SCH ×3 (08:25→20:51)
[2017-06-12] MEDS: LISINOPRIL 10 MG TAB PO SCH (08:25)
[2017-06-12] MEDS: POTASSIUM CHLORIDE 20 MEQ TABCR PO SCH (08:26)
[2017-06-12] MEDS: ATORVASTATIN 10 MG TAB PO SCH (08:26)
[2017-06-12] MEDS ORDERED: METOPROLOL TARTRATE 1 MG/ML VIAL IV STA (08:52)
--- NOTE | 2017-06-12 08:55 | Progress Note ---
Subjective Date of Service: Jun 12, 2017. Subjective Pt evaluation today including: conversation w/ patient, physical exam, lab review, review of studies, review of inpatient medication list Saw/examined the patient in room 239 He has been asymptomatic for the past few days his HRs have been uncontrolled; initially controlled with a low dose b-bryan, now rates are elevated with multiple doses of Cardizem and Lopressor with ambulation, rates go to the 150s-160s; at rest, currently in the 110s. Denies chest pain/palpitations/shortness of breath Review of Systems Respiratory: No cough, No sputum, No wheezing, No shortness of breath, No dyspnea on exertion, No dyspnea at rest Cardiac: No chest pain, No edema, No palpitations Medications Current Inpatient Medications Medications (Trade) Dose Ordered Sig/Bruce Route Start Time Stop Time Status Last Admin Dose Admin Acetaminophen (Tylenol Tab) 650 mg Q4H PRN PO 06/08/17 18:45 07/08/17 18:44 Nitroglycerin (Nitrostat Tab) 0.4 mg UD PRN SL 06/08/17 18:45 07/08/17 18:44 Polyethylene (Miralax Powder Packet) 17 gm DAILY PRN PO 06/08/17 18:45 07/08/17 18:44 Aspirin (Ecotrin Tab) 81 mg DAILY PO 06/09/17 09:00 07/09/17 08:59 06/12/17 08:25 81 MG Atorvastatin Calcium (Lipitor Tab) 10 mg DAILY PO 06/09/17 09:00 07/09/17 08:59 06/12/17 08:26 10 MG Pantoprazole Sodium (Protonix Tab) 40 mg DAILY PO 06/09/17 09:00 07/09/17 08:59 06/12/17 08:24 40 MG Miscellaneous (Iv Fluids Completed) 1 ea PRN PRN N/A 06/08/17 21:00 06/08/18 20:59 Apixaban (Eliquis Tab) 5 mg BID PO 06/09/17 09:45 07/09/17 09:44 06/12/17 08:25 5 MG Furosemide (Lasix Tab) 20 mg BID17 PO 06/09/17 17:00 07/09/17 16:59 06/12/17 08:24 20 MG Potassium Chloride (Klor-Con Tab) 20 meq QAM PO 06/10/17 09:00 07/10/17 08:59 06/12/17 08:26 20 MEQ Lisinopril (Zestril Tab) 10 mg QAM PO 06/11/17 09:00 07/10/17 08:59 06/12/17 08:25 10 MG Metoprolol Tartrate (Lopressor Tab) 50 mg Q6 PO 06/11/17 18:00 07/11/17 13:59 06/12/17 08:24 50 MG Diltiazem HCl (Cardizem Tab) 30 mg TID PO 06/11/17 21:00 07/11/17 20:59 06/12/17 08:25 30 MG Metoprolol Tartrate (Lopressor Iv) 5 mg NOW STAT IV 06/12/17 08:41 06/12/17 08:42 UNV Objective Vital Signs Date Time Temp Pulse Resp B/P (MAP) Pulse Ox O2 Delivery O2 Flow Rate FiO2 06/12/17 08:10 37.0 86 18 138/99 (112) 95 06/12/17 04:00 Room Air 06/12/17 04:00 37.0 103 18 132/90 (104) 91 Room Air 06/12/17 00:00 Room Air 06/11/17 23:55 36.7 95 16 122/86 (98) 91 Room Air 06/11/17 20:00 Room Air 06/11/17 19:07 36.7 94 22 110/81 (91) 90 Room Air 06/11/17 15:38 Room Air 06/11/17 15:20 36.5 106 22 125/93 (104) 97 Room Air 06/11/17 12:00 Room Air 06/11/17 11:24 37.0 90 18 118/83 (95) 93 Physical Exam General Appearance: no apparent distress Respiratory/Chest: chest non-tender, lungs clear, normal breath sounds, no respiratory distress, no accessory muscle use Cardiovascular: + tachycardia, + irregularly irregular Extremities: normal inspection, no pedal edema Laboratory Results Last 24 Hours Test 06/12/17 06:20 White Blood Count 7.34 K/uL Red Blood Count 5.14 M/uL Hemoglobin 15.9 g/dL Hematocrit 46.7 % Mean Corpuscular Volume 90.9 fL Mean Corpuscular Hemoglobin 30.9 pg Mean Corpuscular Hemoglobin Concent 34.0 g/dl RDW Standard Deviation 46.4 fL RDW Coefficient of Variation 14.0 % Platelet Count 331 K/uL Mean Platelet Volume 10.6 fL Sodium Level 137 mmol/L Potassium Level 4.0 mmol/L Chloride Level 105 mmol/L Carbon Dioxide Level 23 mmol/L Anion Gap 9.0 mmol/L Blood Urea Nitrogen 17 mg/dl Creatinine 0.88 mg/dl Est Creatinine Clear Calc Drug Dose 89.7 ml/min Estimated GFR () 106.0 Estimated GFR (Non- 91.4 BUN/Creatinine Ratio 19.0 Random Glucose 96 mg/dl Calcium Level 8.8 mg/dl Magnesium Level 2.0 mg/dl Assessment and Plan This is a 62 year old male with a PMH of HLD, GERD - presents with palpitations - subsequently found to have atrial fibrillation with RVR and later discovered a significantly reduced LVEF New Onset [place] Fibrillation with RVR 3/3 HRs improving, but still elevated to the 110s-120s currently on Lopressor 50mg q6 and Cardizem 30mg TID K = 4.0, Mg = 2.0 3/2 HRs in the 140s currently this AM cardiology ordered Cardizem 30mg PO x1 already received digoxin continue Eliquis 06/10 appreciate cardio input he is off of Cardizem ggt will continue Lopressor and Lisinopril for now HRs are controlled for now continue Eliquis 06/09 patient presented with rates in the 150s-160s given IV Lopressor and then a Cardizem ggt rates improved to lower 100s appreciate cardiology input started on Metoprolol 12.5mg BID - with plans to wean off Cardizem drip IV heparin ggt changed to Eliquis case management consulted to find out the ortega of Eliquis Cardiomyopathy Systolic CHF likely a 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 echo shows an LVEF of 25-30% with severe global hypokinesis of the left ventricle should have a repeat echo some time as outpatient after heart rates are controlled will need stress test at some point due to risk factors (HLD, tobacco use) started on b-bryan, ETHAN-I as per cardiology started on Lasix daily as per cardiology as well HLD may need to increase this dose, but for now will continue home dose of statin GERD PPI DVT ppx Eliquis FULL CODE
[2017-06-12] MEDS ORDERED: NURSING VERBAL MED ORDER ONE (09:00)
[2017-06-12] MEDS ORDERED: DIGOXIN 0.25 MG TAB PO ONE (13:30)
--- NOTE | 2017-06-12 13:36 | Cardiology Follow-Up ---
Subjective Subjective Date of Service: Jun 12, 2017. Pt evaluation today including: conversation w/ patient, physical exam, chart review, lab review, review of studies, review of inpatient medication list Additional Details: The patient had an uneventful night. He continues to have high heart rates he' s moving around in his room. Eyes exam which is probably not the best drug due to the negative inotropic effects and his cardiomyopathy. He is on a good dose of beta bryan and we will add digoxin. The telemetry unit. Review of Systems Constitutional: No fever, No chills Respiratory: No cough, No sputum, No wheezing, No shortness of breath, No dyspnea on exertion, No dyspnea at rest Cardiac: No chest pain, No edema, No palpitations Abdomen: No pain, No nausea, No vomiting, No diarrhea Objective Vital Signs Last Vital Signs Documentation Date Time Temp Pulse Resp B/P (MAP) Pulse Ox O2 Delivery O2 Flow Rate FiO2 06/12/17 12:09 36.9 77 18 106/56 (73) 96 06/12/17 12:00 Room Air 06/10/17 20:00 3.0 Physical Exam: General Appearance: no apparent distress Eyes: bilateral eyes normal inspection, bilateral eyes PERRL, bilateral eyes EOMI ENT: normal ENT inspection, hearing grossly normal, pharynx normal, + pertinent finding (+edentulous) Neck: supple, no adenopathy, thyroid normal, no JVD, no carotid bruits, trachea midline Respiratory/Chest: chest non-tender, lungs clear, normal breath sounds, no respiratory distress, no accessory muscle use Cardiovascular: + tachycardia, + irregularly irregular Abdomen: normal bowel sounds, non tender, soft Extremities: normal inspection, no pedal edema Neurologic/Psychiatric: open soaper tender II-XII nml as tested, no motor/sensory deficits, alert, normal mood/affect, oriented x 3 Skin: normal color, warm/dry, no rash Lymphatic: no adenopathy Assessment and Plan Impression: 1. Congestive heart failure resolving 2. Idiopathic dilated cardiomyopathy 3. Persistent atrial fibrillation Recommendations: As outlined above I will discontinue the patient's diltiazem and add digoxin today. Hopefully that will improve his heart rates. I considered amiodarone control but I believe the digoxin has less side effect profile in this relatively young patient. Medications: Current Inpatient Medications Medications (Trade) Dose Ordered Sig/Bruce Route Start Time Stop Time Status Last Admin Dose Admin Acetaminophen (Tylenol Tab) 650 mg Q4H PRN PO 06/08/17 18:45 07/08/17 18:44 Nitroglycerin (Nitrostat Tab) 0.4 mg UD PRN SL 06/08/17 18:45 07/08/17 18:44 Polyethylene (Miralax Powder Packet) 17 gm DAILY PRN PO 06/08/17 18:45 07/08/17 18:44 Aspirin (Ecotrin Tab) 81 mg DAILY PO 06/09/17 09:00 07/09/17 08:59 06/12/17 08:25 81 MG Atorvastatin Calcium (Lipitor Tab) 10 mg DAILY PO 06/09/17 09:00 07/09/17 08:59 06/12/17 08:26 10 MG Pantoprazole Sodium (Protonix Tab) 40 mg DAILY PO 06/09/17 09:00 07/09/17 08:59 06/12/17 08:24 40 MG Miscellaneous (Iv Fluids Completed) 1 ea PRN PRN N/A 06/08/17 21:00 06/08/18 20:59 Apixaban (Eliquis Tab) 5 mg BID PO 06/09/17 09:45 07/09/17 09:44 06/12/17 08:25 5 MG Furosemide (Lasix Tab) 20 mg BID17 PO 06/09/17 17:00 07/09/17 16:59 06/12/17 08:24 20 MG Potassium Chloride (Klor-Con Tab) 20 meq QAM PO 06/10/17 09:00 07/10/17 08:59 06/12/17 08:26 20 MEQ Lisinopril (Zestril Tab) 10 mg QAM PO 06/11/17 09:00 07/10/17 08:59 06/12/17 08:25 10 MG Metoprolol Tartrate (Lopressor Tab) 50 mg Q6 PO 06/11/17 18:00 07/11/17 13:59 06/12/17 08:24 50 MG Diltiazem HCl (Cardizem Tab) 30 mg TID PO 06/11/17 21:00 07/11/17 20:59 06/12/17 13:19 30 MG Digoxin (Lanoxin Tab) 0.5 mg NOW ONCE PO 06/12/17 13:30 06/12/17 13:31 UNV Digoxin (Lanoxin Tab) 0.25 mg DAILY@16 PO 06/12/17 16:00 07/12/17 15:59 UNV Lab Results: Last 24 Hours Test 06/12/17 06:20 White Blood Count 7.34 K/uL Red Blood Count 5.14 M/uL Hemoglobin 15.9 g/dL Hematocrit 46.7 % Mean Corpuscular Volume 90.9 fL Mean Corpuscular Hemoglobin 30.9 pg Mean Corpuscular Hemoglobin Concent 34.0 g/dl RDW Standard Deviation 46.4 fL RDW Coefficient of Variation 14.0 % Platelet Count 331 K/uL Mean Platelet Volume 10.6 fL Sodium Level 137 mmol/L Potassium Level 4.0 mmol/L Chloride Level 105 mmol/L Carbon Dioxide Level 23 mmol/L Anion Gap 9.0 mmol/L Blood Urea Nitrogen 17 mg/dl Creatinine 0.88 mg/dl Est Creatinine Clear Calc Drug Dose 89.7 ml/min Estimated GFR () 106.0 Estimated GFR (Non- 91.4 BUN/Creatinine Ratio 19.0 Random Glucose 96 mg/dl Calcium Level 8.8 mg/dl Magnesium Level 2.0 mg/dl
[2017-06-13] VITALS (9 sets, daily range): BP systolic 99–128; BP diastolic 57–91; PULSE 61–113; TEMP 36.5–36.8; O2SAT 91–96
[2017-06-13] MEDS: METOPROLOL TARTRATE 50 MG TAB PO SCH ×2 (05:19→21:13)
[2017-06-13] MEDS: ATORVASTATIN 10 MG TAB PO SCH (07:38)
[2017-06-13] MEDS: PANTOprazole SOD 40 MG TAB PO SCH (07:38)
[2017-06-13] MEDS: POTASSIUM CHLORIDE 20 MEQ TABCR PO SCH (07:39)
[2017-06-13] MEDS: ASPIRIN 81 MG ECTAB PO SCH (07:39)
[2017-06-13] MEDS: LISINOPRIL 10 MG TAB PO SCH (07:39)
[2017-06-13] MEDS: APIXABAN 2.5 MG TAB PO SCH ×2 (07:39→21:13)
[2017-06-13] MEDS: FUROSEMIDE 20 MG TAB PO SCH ×2 (07:43→16:19)
[2017-06-13 07:56] LABS: HEMATOCRIT 47.8 % (42-52); HEMOGLOBIN 16.6 g/dL (14.0-18.0); MEAN CELL VOLUME 90.7 fL (80-100); MEAN CORPUSCULAR HEMOGLOBIN 31.5 pg (25-34); MEAN CORPUSCULAR HGB CONC 34.7 g/dl (32-36); MEAN PLATELET VOLUME 10.2 fL (7.4-10.4); PLATELET COUNT 346 K/uL (130-400); RED CELL DISTRIBUTION WIDTH CV 13.9 % (11.5-14.5); RED CELL DISTRIBUTION WIDTH SD 45.6 fL (36.4-46.3); WHITE BLOOD COUNT 8.94 K/uL (4.8-10.8)
[2017-06-13 08:28] LABS: CALCIUM 8.7 mg/dl (8.5-10.1); CREATININE 0.92 mg/dl (0.60-1.40); POTASSIUM 4.2 mmol/L (3.5-5.1)
--- NOTE | 2017-06-13 08:30 | Progress Note ---
Subjective Date of Service: Jun 13, 2017. Subjective Pt evaluation today including: conversation w/ patient, physical exam, lab review, review of studies, review of inpatient medication list Saw/examined the patient in room 239 Denies any symptoms; no shortness of breath/chest pain/palpitations Review of Systems Respiratory: No cough, No sputum, No shortness of breath, No dyspnea on exertion Cardiac: No chest pain, No edema, No palpitations Medications Current Inpatient Medications Medications (Trade) Dose Ordered Sig/Bruce Route Start Time Stop Time Status Last Admin Dose Admin Acetaminophen (Tylenol Tab) 650 mg Q4H PRN PO 06/08/17 18:45 07/08/17 18:44 Nitroglycerin (Nitrostat Tab) 0.4 mg UD PRN SL 06/08/17 18:45 07/08/17 18:44 Polyethylene (Miralax Powder Packet) 17 gm DAILY PRN PO 06/08/17 18:45 07/08/17 18:44 Aspirin (Ecotrin Tab) 81 mg DAILY PO 06/09/17 09:00 07/09/17 08:59 06/13/17 07:39 81 MG Atorvastatin Calcium (Lipitor Tab) 10 mg DAILY PO 06/09/17 09:00 07/09/17 08:59 06/13/17 07:38 10 MG Pantoprazole Sodium (Protonix Tab) 40 mg DAILY PO 06/09/17 09:00 07/09/17 08:59 06/13/17 07:38 40 MG Miscellaneous (Iv Fluids Completed) 1 ea PRN PRN N/A 06/08/17 21:00 06/08/18 20:59 Apixaban (Eliquis Tab) 5 mg BID PO 06/09/17 09:45 07/09/17 09:44 06/13/17 07:39 5 MG Furosemide (Lasix Tab) 20 mg BID17 PO 06/09/17 17:00 07/09/17 16:59 06/13/17 07:43 20 MG Potassium Chloride (Klor-Con Tab) 20 meq QAM PO 06/10/17 09:00 07/10/17 08:59 06/13/17 07:39 20 MEQ Lisinopril (Zestril Tab) 10 mg QAM PO 06/11/17 09:00 07/10/17 08:59 06/13/17 07:39 10 MG Metoprolol Tartrate (Lopressor Tab) 50 mg Q6 PO 06/11/17 18:00 07/11/17 13:59 06/13/17 05:19 50 MG Diltiazem HCl (Cardizem Tab) 30 mg TID PO 06/11/17 21:00 07/11/17 20:59 06/12/17 20:51 30 MG Digoxin (Lanoxin Tab) 0.25 mg DAILY@16 PO 06/13/17 16:00 07/13/17 15:59 Objective Vital Signs Date Time Temp Pulse Resp B/P (MAP) Pulse Ox O2 Delivery O2 Flow Rate FiO2 06/13/17 04:00 36.8 91 16 127/57 (80) 92 Room Air 06/13/17 04:00 92 Room Air 06/12/17 23:59 92 Room Air 06/12/17 23:49 97 103/52 (69) 06/12/17 23:22 36.6 67 20 93 Room Air 06/12/17 20:00 92 Room Air 06/12/17 19:28 36.6 97 18 132/91 (105) 92 Room Air 06/12/17 15:52 36.4 89 18 118/85 (96) 93 Room Air 06/12/17 15:46 Room Air 06/12/17 14:00 99 06/12/17 12:09 36.9 77 18 106/56 (73) 96 06/12/17 12:00 Room Air Physical Exam General Appearance: no apparent distress Respiratory/Chest: no respiratory distress, no accessory muscle use, + rhonchi (minimal rhonchi) Cardiovascular: + tachycardia, + irregularly irregular Extremities: normal range of motion, non-tender, normal inspection, no pedal edema, no calf tenderness Laboratory Results Last 24 Hours Test 06/13/17 07:31 White Blood Count 8.94 K/uL Red Blood Count 5.27 M/uL Hemoglobin 16.6 g/dL Hematocrit 47.8 % Mean Corpuscular Volume 90.7 fL Mean Corpuscular Hemoglobin 31.5 pg Mean Corpuscular Hemoglobin Concent 34.7 g/dl RDW Standard Deviation 45.6 fL RDW Coefficient of Variation 13.9 % Platelet Count 346 K/uL Mean Platelet Volume 10.2 fL Assessment and Plan This is a 62 year old male with a PMH of HLD, GERD - presents with palpitations - subsequently found to have atrial fibrillation with RVR and later discovered a significantly reduced LVEF New Onset [place] Fibrillation with RVR 06/13 appreciate cardiology input will use a combination of digoxin and Lopressor may need to increase digoxin dose to 0.5mg; will await cardio input continue Eliquis 3/ HRs improving, but still elevated to the 110s-120s currently on Lopressor 50mg q6 and Cardizem 30mg TID K = 4.0, Mg = 2.0 3/2 HRs in the 140s currently this AM cardiology ordered Cardizem 30mg PO x1 already received digoxin continue Eliquis 06/10 appreciate cardio input he is off of Cardizem ggt will continue Lopressor and Lisinopril for now HRs are controlled for now continue Eliquis 06/09 patient presented with rates in the 150s-160s given IV Lopressor and then a Cardizem ggt rates improved to lower 100s appreciate cardiology input started on Metoprolol 12.5mg BID - with plans to wean off Cardizem drip IV heparin ggt changed to Eliquis case management consulted to find out the ortega of Eliquis Cardiomyopathy Systolic CHF likely a 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 echo shows an LVEF of 25-30% with severe global hypokinesis of the left ventricle should have a repeat echo some time as outpatient after heart rates are controlled will need stress test at some point due to risk factors (HLD, tobacco use) started on b-bryan, ETHAN-I as per cardiology started on Lasix daily as per cardiology as well HLD may need to increase this dose, but for now will continue home dose of statin GERD PPI DVT ppx Eliquis FULL CODE
--- NOTE | 2017-06-13 10:11 | Cardiology Follow-Up ---
Subjective Subjective Date of Service: Jun 13, 2017. Pt evaluation today including: conversation w/ patient, physical exam, chart review, lab review, review of studies, review of inpatient medication list Additional Details: The patient had an uneventful night and actually feels well this morning however , his heart rates have been very labile invariable. Through the night while he was sleeping and he he had some bradycardia and a 2.6 second cause. This morning his heart rates at times have been as high as 180 bpm. He is asymptomatic in regard to the arrhythmias. He denies chest pain or shortness of breath. He's had no dizziness or lightheadedness. Review of Systems Constitutional: No fever, No chills Respiratory: No cough, No sputum, No shortness of breath, No dyspnea on exertion Cardiac: No chest pain, No edema, No palpitations Abdomen: No pain, No nausea, No vomiting, No diarrhea Objective Vital Signs Last Vital Signs Documentation Date Time Temp Pulse Resp B/P (MAP) Pulse Ox O2 Delivery O2 Flow Rate FiO2 06/13/17 08:00 Room Air 06/13/17 07:30 36.6 113 20 128/91 (103) 94 06/10/17 20:00 3.0 Physical Exam: General Appearance: no apparent distress Eyes: bilateral eyes normal inspection, bilateral eyes PERRL, bilateral eyes EOMI ENT: normal ENT inspection, hearing grossly normal, pharynx normal, + pertinent finding (+edentulous) Neck: supple, no adenopathy, thyroid normal, no JVD, no carotid bruits, trachea midline Respiratory/Chest: no respiratory distress, no accessory muscle use, + rhonchi (minimal rhonchi) Cardiovascular: + tachycardia, + irregularly irregular Abdomen: normal bowel sounds, non tender, soft Extremities: normal range of motion, non-tender, normal inspection, no pedal edema, no calf tenderness Neurologic/Psychiatric: informatica mdm developer II-XII nml as tested, no motor/sensory deficits, alert, normal mood/affect, oriented x 3 Skin: normal color, warm/dry, no rash Lymphatic: no adenopathy Assessment and Plan Impression: 1. Congestive heart failure resolving 2. Idiopathic dilated cardiomyopathy 3. Persistent atrial fibrillation Recommendations: As outlined above, the patient has had labile heart rates with his persistent atrial fibrillation. At this time I'm not only going to discontinue the diltiazem but also the digoxin. I think we need to start over and he will be loaded with amiodarone. I am a little concerned regarding his low heart rates at night and while starting the amiodarone on going to lower his dose of metoprolol. He can have when necessary IV doses of metoprolol when necessary and we can make adjustments to his maintenance dose after starting the amiodarone. I'm going to place a nocturnal pulse oximeter. His slow heart rates last night during sleep may reflect sleep apnea. Medications: Current Inpatient Medications Medications (Trade) Dose Ordered Sig/Bruce Route Start Time Stop Time Status Last Admin Dose Admin Acetaminophen (Tylenol Tab) 650 mg Q4H PRN PO 06/08/17 18:45 07/08/17 18:44 Nitroglycerin (Nitrostat Tab) 0.4 mg UD PRN SL 06/08/17 18:45 07/08/17 18:44 Polyethylene (Miralax Powder Packet) 17 gm DAILY PRN PO 06/08/17 18:45 07/08/17 18:44 Aspirin (Ecotrin Tab) 81 mg DAILY PO 06/09/17 09:00 07/09/17 08:59 06/13/17 07:39 81 MG Atorvastatin Calcium (Lipitor Tab) 10 mg DAILY PO 06/09/17 09:00 07/09/17 08:59 06/13/17 07:38 10 MG Pantoprazole Sodium (Protonix Tab) 40 mg DAILY PO 06/09/17 09:00 07/09/17 08:59 06/13/17 07:38 40 MG Miscellaneous (Iv Fluids Completed) 1 ea PRN PRN N/A 06/08/17 21:00 06/08/18 20:59 Apixaban (Eliquis Tab) 5 mg BID PO 06/09/17 09:45 07/09/17 09:44 06/13/17 07:39 5 MG Furosemide (Lasix Tab) 20 mg BID17 PO 06/09/17 17:00 07/09/17 16:59 06/13/17 07:43 20 MG Potassium Chloride (Klor-Con Tab) 20 meq QAM PO 06/10/17 09:00 07/10/17 08:59 06/13/17 07:39 20 MEQ Lisinopril (Zestril Tab) 10 mg QAM PO 06/11/17 09:00 07/10/17 08:59 06/13/17 07:39 10 MG Metoprolol Tartrate (Lopressor Tab) 50 mg Q6 PO 06/11/17 18:00 07/11/17 13:59 06/13/17 05:19 50 MG Lab Results: Last 24 Hours Test 06/13/17 07:31 White Blood Count 8.94 K/uL Red Blood Count 5.27 M/uL Hemoglobin 16.6 g/dL Hematocrit 47.8 % Mean Corpuscular Volume 90.7 fL Mean Corpuscular Hemoglobin 31.5 pg Mean Corpuscular Hemoglobin Concent 34.7 g/dl RDW Standard Deviation 45.6 fL RDW Coefficient of Variation 13.9 % Platelet Count 346 K/uL Mean Platelet Volume 10.2 fL Sodium Level 137 mmol/L Potassium Level 4.2 mmol/L Chloride Level 105 mmol/L Carbon Dioxide Level 24 mmol/L Anion Gap 8.0 mmol/L Blood Urea Nitrogen 17 mg/dl Creatinine 0.92 mg/dl Est Creatinine Clear Calc Drug Dose 84.5 ml/min Estimated GFR () 102.2 Estimated GFR (Non- 88.2 BUN/Creatinine Ratio 18.0 Random Glucose 101 mg/dl Calcium Level 8.7 mg/dl Magnesium Level 2.2 mg/dl
[2017-06-13] MEDS: AMIODARONE 200 MG TAB PO SCH ×2 (11:08→16:19)
[2017-06-13] MEDS ORDERED: METOPROLOL TARTRATE 1 MG/ML VIAL IV PRN (15:45)
[2017-06-13] MEDS ORDERED: DIGOXIN 0.25 MG TAB PO SCH (16:00)
[2017-06-14] VITALS (9 sets, daily range): BP systolic 103–131; BP diastolic 63–90; PULSE 64–107; TEMP 36.5–36.9; O2SAT 90–97
[2017-06-14 06:04] LABS: HEMATOCRIT 47.1 % (42-52); HEMOGLOBIN 16.2 g/dL (14.0-18.0); MEAN CELL VOLUME 90.8 fL (80-100); MEAN CORPUSCULAR HEMOGLOBIN 31.2 pg (25-34); MEAN CORPUSCULAR HGB CONC 34.4 g/dl (32-36); MEAN PLATELET VOLUME 10.2 fL (7.4-10.4); PLATELET COUNT 340 K/uL (130-400); RED CELL DISTRIBUTION WIDTH SD 46.3 fL (36.4-46.3); WHITE BLOOD COUNT 8.76 K/uL (4.8-10.8)
[2017-06-14 06:26] LABS: CALCIUM 8.3 mg/dl (8.5-10.1); CREATININE 1.05 mg/dl (0.60-1.40); POTASSIUM 4.2 mmol/L (3.5-5.1)
[2017-06-14] MEDS: AMIODARONE 200 MG TAB PO SCH ×3 (07:28→16:32)
[2017-06-14] MEDS: LISINOPRIL 10 MG TAB PO SCH (07:53)
[2017-06-14] MEDS: POTASSIUM CHLORIDE 20 MEQ TABCR PO SCH (07:53)
[2017-06-14] MEDS: ASPIRIN 81 MG ECTAB PO SCH (07:53)
[2017-06-14] MEDS: ATORVASTATIN 10 MG TAB PO SCH (07:54)
[2017-06-14] MEDS: FUROSEMIDE 20 MG TAB PO SCH ×2 (07:54→16:32)
[2017-06-14] MEDS: PANTOprazole SOD 40 MG TAB PO SCH (07:54)
[2017-06-14] MEDS: APIXABAN 2.5 MG TAB PO SCH ×2 (07:54→20:45)
[2017-06-14] MEDS: METOPROLOL TARTRATE 50 MG TAB PO SCH ×2 (08:02→20:46)
--- NOTE | 2017-06-14 10:06 | Progress Note ---
Subjective Date of Service: Jun 14, 2017. Subjective Pt evaluation today including: conversation w/ patient, physical exam, lab review, review of studies, review of inpatient medication list Saw/examined the patient in room 239 He continues to be asymptomatic HRs are 90s-110s at rest, but jump to 160s-170s with exertion Has had an episode of slow HR with pause earlier in the admission Denies chest pain/palpitations/shortness of breath/edema Review of Systems Respiratory: No cough, No sputum, No shortness of breath Cardiac: No chest pain, No edema, No palpitations Medications Current Inpatient Medications Medications (Trade) Dose Ordered Sig/Bruce Route Start Time Stop Time Status Last Admin Dose Admin Acetaminophen (Tylenol Tab) 650 mg Q4H PRN PO 06/08/17 18:45 07/08/17 18:44 Nitroglycerin (Nitrostat Tab) 0.4 mg UD PRN SL 06/08/17 18:45 07/08/17 18:44 Polyethylene (Miralax Powder Packet) 17 gm DAILY PRN PO 06/08/17 18:45 07/08/17 18:44 Aspirin (Ecotrin Tab) 81 mg DAILY PO 06/09/17 09:00 07/09/17 08:59 06/14/17 07:53 81 MG Atorvastatin Calcium (Lipitor Tab) 10 mg DAILY PO 06/09/17 09:00 07/09/17 08:59 06/14/17 07:54 10 MG Pantoprazole Sodium (Protonix Tab) 40 mg DAILY PO 06/09/17 09:00 07/09/17 08:59 06/14/17 07:54 40 MG Miscellaneous (Iv Fluids Completed) 1 ea PRN PRN N/A 06/08/17 21:00 06/08/18 20:59 Apixaban (Eliquis Tab) 5 mg BID PO 06/09/17 09:45 07/09/17 09:44 06/14/17 07:54 5 MG Furosemide (Lasix Tab) 20 mg BID17 PO 06/09/17 17:00 07/09/17 16:59 06/14/17 07:54 20 MG Potassium Chloride (Klor-Con Tab) 20 meq QAM PO 06/10/17 09:00 07/10/17 08:59 06/14/17 07:53 20 MEQ Lisinopril (Zestril Tab) 10 mg QAM PO 06/11/17 09:00 07/10/17 08:59 06/14/17 07:53 10 MG Metoprolol Tartrate (Lopressor Tab) 50 mg BID PO 06/13/17 21:00 07/11/17 13:59 06/14/17 08:02 50 MG Amiodarone HCl (Cordarone Tab) 400 mg TIDM PO 06/13/17 11:30 07/13/17 11:29 06/14/17 07:28 400 MG Metoprolol Tartrate (Lopressor Iv) 5 mg Q6H PRN IV 06/13/17 15:45 07/13/17 15:44 Objective Vital Signs Date Time Temp Pulse Resp B/P (MAP) Pulse Ox O2 Delivery O2 Flow Rate FiO2 06/14/17 08:00 Room Air 06/14/17 07:44 107 06/14/17 07:41 36.7 88 20 122/90 (101) 92 Room Air 06/14/17 04:00 36.5 92 20 115/81 (92) 97 Room Air 06/14/17 04:00 97 Room Air 06/13/17 23:59 94 Room Air 06/13/17 23:18 36.6 84 18 99/66 (77) 94 Room Air 06/13/17 21:12 98 118/70 (86) 06/13/17 20:00 91 Room Air 06/13/17 19:59 36.5 61 18 99/70 (80) 91 Room Air 06/13/17 16:00 Room Air 06/13/17 15:29 36.5 98 20 112/77 (89) 93 Room Air 06/13/17 12:00 Room Air 06/13/17 11:59 36.8 80 18 111/79 (90) 96 Physical Exam General Appearance: no apparent distress Respiratory/Chest: chest non-tender, lungs clear, normal breath sounds, no respiratory distress, no accessory muscle use Cardiovascular: no murmur, + tachycardia, + irregularly irregular Extremities: normal inspection, no pedal edema Laboratory Results Last 24 Hours Test 06/14/17 05:39 White Blood Count 8.76 K/uL Red Blood Count 5.19 M/uL Hemoglobin 16.2 g/dL Hematocrit 47.1 % Mean Corpuscular Volume 90.8 fL Mean Corpuscular Hemoglobin 31.2 pg Mean Corpuscular Hemoglobin Concent 34.4 g/dl RDW Standard Deviation 46.3 fL RDW Coefficient of Variation 14.0 % Platelet Count 340 K/uL Mean Platelet Volume 10.2 fL Sodium Level 138 mmol/L Potassium Level 4.2 mmol/L Chloride Level 106 mmol/L Carbon Dioxide Level 25 mmol/L Anion Gap 7.0 mmol/L Blood Urea Nitrogen 18 mg/dl Creatinine 1.05 mg/dl Est Creatinine Clear Calc Drug Dose 73.3 ml/min Estimated GFR () 87.1 Estimated GFR (Non- 75.2 BUN/Creatinine Ratio 17.3 Random Glucose 94 mg/dl Calcium Level 8.3 mg/dl Magnesium Level 2.0 mg/dl Assessment and Plan This is a 62 year old male with a PMH of HLD, GERD - presents with palpitations - subsequently found to have atrial fibrillation with RVR and later discovered a significantly reduced LVEF New Onset [place] Fibrillation with RVR 06/14 was changed from Cardizem and digoxin to Amiodarone 400mg TID yesterday Lopressor at 50mg BID HRs are improving, but he is very tachycardic with exertion will await further input from cardiology continue Eliquis for anticoagulation 06/13 appreciate cardiology input will use a combination of digoxin and Lopressor may need to increase digoxin dose to 0.5mg; will await cardio input continue Eliquis 06/12 HRs improving, but still elevated to the 110s-120s currently on Lopressor 50mg q6 and Cardizem 30mg TID K = 4.0, Mg = 2.0 3/2 HRs in the 140s currently this AM cardiology ordered Cardizem 30mg PO x1 already received digoxin continue Eliquis 06/10 appreciate cardio input he is off of Cardizem ggt will continue Lopressor and Lisinopril for now HRs are controlled for now continue Eliquis 06/09 patient presented with rates in the 150s-160s given IV Lopressor and then a Cardizem ggt rates improved to lower 100s appreciate cardiology input started on Metoprolol 12.5mg BID - with plans to wean off Cardizem drip IV heparin ggt changed to Eliquis case management consulted to find out the ortega of Eliquis Cardiomyopathy Systolic CHF likely a 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 echo shows an LVEF of 25-30% with severe global hypokinesis of the left ventricle should have a repeat echo some time as outpatient after heart rates are controlled will need stress test at some point due to risk factors (HLD, tobacco use) started on b-bryan, ETHAN-I as per cardiology started on Lasix daily as per cardiology as well HLD may need to increase this dose, but for now will continue home dose of statin GERD PPI DVT ppx Eliquis FULL CODE
--- NOTE | 2017-06-14 11:31 | Cardiology Follow-Up ---
Subjective General Date of Service: Jun 14, 2017. Chief Complaint: Atrial fibrillation Pt evaluation today including: conversation w/ patient, conversation w/ family , physical exam, chart review, lab review, review of studies, review of inpatient medication list History of Present Illness Patient seen and examined. Family at bedside. No complaints voiced. He specifically denies chest pain, palpitations, dyspnea (longstanding history of heavy tobacco abuse having quit in April 2017), orthopnea, PND, or lower extremity peripheral edema Telemetry: Atrial fibrillation throughout. No periods of sinus. Heart rates remain quite variable, bradycardic overnight with pauses up to 1.6 seconds and tachycardic up to 180 bpm for short periods of time. Currently in the 80's. Nocturnal pulse oximetry reviewed mild nocturnal hypoxemia. June 09, 2017 TTE Interpretation Summary ([facility], Dr. Mojica): Mildly dilated LV chamber size with normal wall thickness. Severely reduced LV systolic function with severe global hypokinesis, EF 25-30%. Normal RV chamber size with reduced systolic function by TAPSE. Moderate mitral regurgitation. Moderate tricuspid regurgitation. Mild biatrial enlargement. Allergies Coded Allergies: No Known Allergies (Unverified , 06/08/17) Social History Smoking Status: Former Smoker Hx Tobacco Use In Past Year?: Yes (quit apr 2017) Hx Alcohol Use - Type And Amou: No Hx Substance Use - Type And Am: No Physical Exam Vital Signs Last Vital Signs Documentation Date Time Temp Pulse Resp B/P (MAP) Pulse Ox O2 Delivery O2 Flow Rate FiO2 06/14/17 08:00 Room Air 06/14/17 07:44 107 06/14/17 07:41 36.7 20 122/90 (101) 92 06/10/17 20:00 3.0 Physical Exam Constitutional: General Apperance: heathly-appearing Level of Distress: NAD Psychiatric: Mental Status: active & alert Orientation: to time, to place, to person Memory: recent memory normal, remote memory normal Head: normocephalic, atraumatic Eyes: Pupils: PERRLA Neck: pertinent finding (Normal JVP. No HJR) Lungs: Auscultation: no rales/crackles, deminished air movement, decreased breath sounds, expiratory wheezing, rhonchi (right) Cardiovascular: Heart Auscultation: no murmurs, tachycardia, irregular rate rhythm Abdomen: Inspection & Palpation: soft Musculoskeletal: normal Extremities: no cyanosis, no edema, no clubbing Neurologic: Cranial Nerves: grossly intact Assessment and Plan Assessment and Plan Admission on 06/09/2017 with new onset atrial fibrillation with a rapid ventricular response and new onset acute decompensated systolic congestive heart failure with LVEF 25-30%. Heart rates have been quite labile, difficult to control. He has been anticoagulated with Eliquis since the morning of 2017. RECOMMENDATIONS: EKG and LFT's given addition off amiodarone Continue oral amiodarone, metoprolol and Eliquis anticoagulation. Patient claims to be asymptomatic and his volume status is compensated. For now , the plan is for proper anticoagulation for at least three weeks then direct current cardioversion. Consideration to be made for the use of a Life Vest prior to discharge. He will also eventually need an ischemic workup though the atrial fibrillation ( tachycardia) appears to be the etiology of the systolic function. CARDIOLOGY ATTENDING ADDENDUM: The patient was seen and personally examined. Agree with Daniel Tejeda PA-C's findings and plans as documented above. Patient is currently stable and we are working towards getting him on guideline directed medications as well as anticoagulation and control of his atrial fibrillation before discharge. Laboratory Results Last 24 Hours Test 06/14/17 05:39 White Blood Count 8.76 K/uL Red Blood Count 5.19 M/uL Hemoglobin 16.2 g/dL Hematocrit 47.1 % Mean Corpuscular Volume 90.8 fL Mean Corpuscular Hemoglobin 31.2 pg Mean Corpuscular Hemoglobin Concent 34.4 g/dl RDW Standard Deviation 46.3 fL RDW Coefficient of Variation 14.0 % Platelet Count 340 K/uL Mean Platelet Volume 10.2 fL Sodium Level 138 mmol/L Potassium Level 4.2 mmol/L Chloride Level 106 mmol/L Carbon Dioxide Level 25 mmol/L Anion Gap 7.0 mmol/L Blood Urea Nitrogen 18 mg/dl Creatinine 1.05 mg/dl Est Creatinine Clear Calc Drug Dose 73.3 ml/min Estimated GFR () 87.1 Estimated GFR (Non- 75.2 BUN/Creatinine Ratio 17.3 Random Glucose 94 mg/dl Calcium Level 8.3 mg/dl Magnesium Level 2.0 mg/dl
[2017-06-14 12:54] LABS: ALBUMIN 3.3 gm/dl (3.4-5.0); TOTAL PROTEIN 6.2 gm/dl (6.4-8.2)
[2017-06-15 03:15] VITALS: BP 124/85; PULSE 85; TEMP 36.8; O2SAT 94
[2017-06-15] MEDS: METOPROLOL TARTRATE 50 MG TAB PO SCH ×2 (07:37→20:05)
[2017-06-15] MEDS: FUROSEMIDE 20 MG TAB PO SCH ×2 (07:37→16:52)
[2017-06-15] MEDS: APIXABAN 2.5 MG TAB PO SCH ×2 (07:37→20:05)
[2017-06-15] MEDS: ASPIRIN 81 MG ECTAB PO SCH (07:37)
[2017-06-15] MEDS: POTASSIUM CHLORIDE 20 MEQ TABCR PO SCH (07:37)
[2017-06-15] MEDS: ATORVASTATIN 10 MG TAB PO SCH (07:38)
[2017-06-15] MEDS: AMIODARONE 200 MG TAB PO SCH ×3 (07:38→16:51)
[2017-06-15] MEDS: PANTOprazole SOD 40 MG TAB PO SCH (07:38)
[2017-06-15] MEDS: LISINOPRIL 10 MG TAB PO SCH (07:38)
[2017-06-15 07:42] VITALS: BP 120/88; PULSE 78; TEMP 36.6; O2SAT 95
--- NOTE | 2017-06-15 10:18 | Progress Note ---
Medicine Progress Note Date & Time of Visit: Jun 15, 2017 at 10:10. Subjective patient seen resting in bed, comfortable states he feels fine overall denies chest pain, palpitations, dyspnea, dizziness, weakness no bleeding denies other symptoms Objective Last 8 Hrs Date Time Temp Pulse Resp B/P (MAP) Pulse Ox O2 Delivery O2 Flow Rate FiO2 06/15/17 08:00 Room Air 06/15/17 07:42 36.6 78 19 120/88 (99) 95 Room Air 06/15/17 04:00 Room Air 06/15/17 03:15 36.8 85 124/85 (98) 94 Room Air Physical Exam: General- oriented x 3, not in distress, speaks in sentences with no effort Head- atraumatic Eyes- PERRL, EOMI, anicteric ENT- oropharynx clear Neck- supple, no JVD, no adenopathy, no thyromegaly; carotids +2/2 Lungs- clear to auscultation bilaterally Heart- regular rhythm; no murmur, normal rate Abdomen- normal bowel sounds, soft, nontender Extremities- no pretibial edema, no calf tenderness; peripheral pulses intact Neuro- alert, oriented x 3; no gross focal deficits Skin- warm & dry Laboratory Results: Last 24 Hours Test 06/14/17 11:36 Total Bilirubin 0.6 mg/dl Direct Bilirubin 0.2 mg/dl Aspartate Amino Transf (AST/SGOT) 17 U/L Alanine Aminotransferase (ALT/SGPT) 43 U/L Alkaline Phosphatase 83 U/L Total Protein 6.2 gm/dl Albumin 3.3 gm/dl Assessment & Plan This is a 62 year old male with a PMH of HLD, GERD - presents with palpitations - subsequently found to have atrial fibrillation with RVR and later discovered a significantly reduced LVEF [place] Fibrillation with RVR patient presented with rates in the 150s-160s given IV Lopressor and then a Cardizem ggt rates improved to lower 100s transitioned to Amiodarone 400mg po TID Metoprolol also started also started on Eliquis 5mg BID tolerating medications well HR controlled awaiting further recommendations per Cardiology, appreciate the recommendations will use a combination of digoxin and Lopressor may need to increase digoxin dose to 0.5mg; will await cardio input continue Eliquis Cardiomyopathy Systolic CHF likely a 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 echo shows an LVEF of 25-30% with severe global hypokinesis of the left ventricle should have a repeat echo some time as outpatient after heart rates are controlled will need stress test at some point due to risk factors (HLD, tobacco use) started on b-bryan, ETHAN-I as per cardiology started on Lasix daily Euvolemic HLD on Statin GERD PPI DVT ppx Eliquis FULL CODE Disposition anticipate d/c home when cleared by Cardiology may benefit from Home Health Services Current Inpatient Medications: Current Inpatient Medications Medications (Trade) Dose Ordered Sig/Bruce Route Start Time Stop Time Status Last Admin Dose Admin Acetaminophen (Tylenol Tab) 650 mg Q4H PRN PO 06/08/17 18:45 07/08/17 18:44 Nitroglycerin (Nitrostat Tab) 0.4 mg UD PRN SL 06/08/17 18:45 07/08/17 18:44 Polyethylene (Miralax Powder Packet) 17 gm DAILY PRN PO 06/08/17 18:45 07/08/17 18:44 Aspirin (Ecotrin Tab) 81 mg DAILY PO 06/09/17 09:00 07/09/17 08:59 06/15/17 07:37 81 MG Atorvastatin Calcium (Lipitor Tab) 10 mg DAILY PO 06/09/17 09:00 07/09/17 08:59 06/15/17 07:38 10 MG Pantoprazole Sodium (Protonix Tab) 40 mg DAILY PO 06/09/17 09:00 07/09/17 08:59 06/15/17 07:38 40 MG Miscellaneous (Iv Fluids Completed) 1 ea PRN PRN N/A 06/08/17 21:00 06/08/18 20:59 Apixaban (Eliquis Tab) 5 mg BID PO 06/09/17 09:45 07/09/17 09:44 06/15/17 07:37 5 MG Furosemide (Lasix Tab) 20 mg BID17 PO 06/09/17 17:00 07/09/17 16:59 06/15/17 07:37 20 MG Potassium Chloride (Klor-Con Tab) 20 meq QAM PO 06/10/17 09:00 07/10/17 08:59 06/15/17 07:37 20 MEQ Lisinopril (Zestril Tab) 10 mg QAM PO 06/11/17 09:00 07/10/17 08:59 06/15/17 07:38 10 MG Metoprolol Tartrate (Lopressor Tab) 50 mg BID PO 06/13/17 21:00 07/11/17 13:59 06/15/17 07:37 50 MG Amiodarone HCl (Cordarone Tab) 400 mg TIDM PO 06/13/17 11:30 07/13/17 11:29 06/15/17 07:38 400 MG Metoprolol Tartrate (Lopressor Iv) 5 mg Q6H PRN IV 06/13/17 15:45 07/13/17 15:44
--- NOTE | 2017-06-15 11:03 | Cardiology Follow-Up ---
Subjective General Date of Service: Jun 15, 2017. Chief Complaint: Atrial fibrillation Pt evaluation today including: conversation w/ patient, physical exam, chart review, lab review, review of studies, review of inpatient medication list History of Present Illness Patient seen and examined.No complaints voiced. He specifically denies chest pain, palpitations, dyspnea (longstanding history of heavy tobacco abuse having quit in April 2017), orthopnea, PND, or lower extremity peripheral edema Telemetry: Atrial fibrillation with a controlled ventricular response. Rates are much less variable. No periods of sinus. June 09, 2017 TTE Interpretation Summary ([facility], Dr. Mojica): Mildly dilated LV chamber size with normal wall thickness. Severely reduced LV systolic function with severe global hypokinesis, EF 25-30%. Normal RV chamber size with reduced systolic function by TAPSE. Moderate mitral regurgitation. Moderate tricuspid regurgitation. Mild biatrial enlargement. Allergies Coded Allergies: No Known Allergies (Unverified , 06/08/17) Social History Smoking Status: Former Smoker Hx Tobacco Use In Past Year?: Yes (quit apr 2017) Hx Alcohol Use - Type And Amou: No Hx Substance Use - Type And Am: No Physical Exam Vital Signs Last Vital Signs Documentation Date Time Temp Pulse Resp B/P (MAP) Pulse Ox O2 Delivery O2 Flow Rate FiO2 06/15/17 08:00 Room Air 06/15/17 07:42 36.6 78 19 120/88 (99) 95 06/10/17 20:00 3.0 Physical Exam Constitutional: General Apperance: heathly-appearing Level of Distress: NAD Psychiatric: Mental Status: active & alert Orientation: to time, to place, to person Memory: recent memory normal, remote memory normal Head: normocephalic, atraumatic Eyes: Pupils: PERRLA Neck: pertinent finding (Normal JVP. No HJR) Lungs: Auscultation: no rales/crackles, deminished air movement, decreased breath sounds, expiratory wheezing, rhonchi (right) Cardiovascular: Heart Auscultation: no murmurs, tachycardia, irregular rate rhythm Abdomen: Inspection & Palpation: soft Musculoskeletal: normal Extremities: no cyanosis, no edema, no clubbing Neurologic: Cranial Nerves: grossly intact Assessment and Plan Assessment and Plan Admission on 06/09/2017 with new onset atrial fibrillation with a rapid ventricular response and new onset acute decompensated systolic congestive heart failure with LVEF 25-30%. Heart rates have been quite labile, difficult to control. He has been anticoagulated with Eliquis since the morning of 2017. RECOMMENDATIONS: Continue oral amiodarone at 400 mg three times per day until discharge, discharging on 200 mg three times per day. Continue metoprolol at 50 mg twice a day for now Continue Eliquis anticoagulation Plan is to load amiodarone, await for at least three weeks of proper anticoagulation, and then perform outpatient direct current cardioversion. He will also eventually need an ischemic workup though the atrial fibrillation ( tachycardia) appears to be the etiology of the systolic function. Consult Boiler Service Technician, RE: Life Vest consideration. Outpatient cardiology is being arranged for the end of his week or early next week. CARDIOLOGY ATTENDING ADDENDUM: The patient was seen and personally examined. Agree with Daniel Tejeda PA-C's findings and plans as documented above. The patient's heart rates are better today. We will plan follow-up as an outpatient. Laboratory Results Last 24 Hours Test 06/14/17 11:36 Total Bilirubin 0.6 mg/dl Direct Bilirubin 0.2 mg/dl Aspartate Amino Transf (AST/SGOT) 17 U/L Alanine Aminotransferase (ALT/SGPT) 43 U/L Alkaline Phosphatase 83 U/L Total Protein 6.2 gm/dl Albumin 3.3 gm/dl
[2017-06-15 11:40] VITALS: BP 100/77; PULSE 88; TEMP 36.5; O2SAT 94
[2017-06-15 15:59] VITALS: BP 119/81; PULSE 84; TEMP 36.3; O2SAT 99
[2017-06-15 19:00] VITALS: BP 103/72; PULSE 94; TEMP 36.4; O2SAT 92
[2017-06-15 23:40] VITALS: BP 103/69; PULSE 70; TEMP 36.5; O2SAT 95
[2017-06-16 03:38] VITALS: BP 119/84; PULSE 57; TEMP 36.8; O2SAT 96
[2017-06-16 07:27] VITALS: BP 125/81; PULSE 74; TEMP 36.7; O2SAT 97
[2017-06-16] MEDS: METOPROLOL TARTRATE 50 MG TAB PO SCH (07:29)
[2017-06-16] MEDS: FUROSEMIDE 20 MG TAB PO SCH (07:29)
[2017-06-16] MEDS: APIXABAN 2.5 MG TAB PO SCH (07:29)
[2017-06-16] MEDS: POTASSIUM CHLORIDE 20 MEQ TABCR PO SCH (07:29)
[2017-06-16] MEDS: LISINOPRIL 10 MG TAB PO SCH (07:30)
[2017-06-16] MEDS: AMIODARONE 200 MG TAB PO SCH ×2 (07:30→11:58)
[2017-06-16] MEDS: ASPIRIN 81 MG ECTAB PO SCH (07:30)
[2017-06-16] MEDS: ATORVASTATIN 10 MG TAB PO SCH (07:30)
[2017-06-16] MEDS: PANTOprazole SOD 40 MG TAB PO SCH (07:30)
--- NOTE | 2017-06-16 10:02 | Cardiology Follow-Up ---
Subjective General Date of Service: Jun 16, 2017. Chief Complaint: Atrial fibrillation Pt evaluation today including: conversation w/ patient, physical exam, chart review, lab review, review of studies, review of inpatient medication list History of Present Illness Patient seen and examined. No complaints voiced. Denies chest pain, palpitations , dyspnea (longstanding history of heavy tobacco abuse having quit in April 2017), orthopnea, PND, or lower extremity peripheral edema Telemetry: Atrial fibrillation with a controlled ventricular response, currently in the 80's. No periods of sinus. June 09, 2017 TTE Interpretation Summary ([facility], Dr. Mojica): Mildly dilated LV chamber size with normal wall thickness. Severely reduced LV systolic function with severe global hypokinesis, EF 25-30%. Normal RV chamber size with reduced systolic function by TAPSE. Moderate mitral regurgitation. Moderate tricuspid regurgitation. Mild biatrial enlargement. Allergies Coded Allergies: No Known Allergies (Unverified , 06/08/17) Social History Smoking Status: Former Smoker Hx Tobacco Use In Past Year?: Yes (quit apr 2017) Hx Alcohol Use - Type And Amou: No Hx Substance Use - Type And Am: No Physical Exam Vital Signs Last Vital Signs Documentation Date Time Temp Pulse Resp B/P (MAP) Pulse Ox O2 Delivery O2 Flow Rate FiO2 06/16/17 07:27 36.7 74 16 125/81 (96) 97 Room Air 06/10/17 20:00 3.0 Physical Exam Constitutional: General Apperance: heathly-appearing Level of Distress: NAD Psychiatric: Mental Status: active & alert Orientation: to time, to place, to person Memory: recent memory normal, remote memory normal Head: normocephalic, atraumatic Eyes: Pupils: PERRLA Neck: pertinent finding (Normal JVP. No HJR) Lungs: Auscultation: no rales/crackles, deminished air movement, decreased breath sounds, expiratory wheezing, rhonchi (right) Cardiovascular: Heart Auscultation: no murmurs, irregular rate rhythm Abdomen: Inspection & Palpation: soft Musculoskeletal: normal Extremities: no cyanosis, no edema, no clubbing Neurologic: Cranial Nerves: grossly intact Assessment and Plan Assessment and Plan Admission on 06/09/2017 with new onset atrial fibrillation with a rapid ventricular response and new onset acute decompensated systolic congestive heart failure with LVEF 25-30%. Rates have come under much better control following initiation of amiodarone. He has been anticoagulated with Eliquis since the morning of 06/09/2017. RECOMMENDATIONS: Continue oral amiodarone at 400 mg three times per day until discharge, discharging on 200 mg three times per day. Continue metoprolol at 50 mg twice a day for now. Would increase AM dosing if needed for additional heart rate control post discharge; this would likely require reduction in Lisinopril dosing. Continue Eliquis anticoagulation Plan is to continue to load amiodarone, await for at least three weeks of proper anticoagulation, and then perform outpatient direct current cardioversion. He will also eventually need an ischemic workup though the atrial fibrillation ( tachycardia) appears to be the etiology of the systolic function. Outpatient cardiology is being arranged for the end of his week or early next week. CARDIOLOGY ATTENDING ADDENDUM: The patient was seen and personally examined. Agree with Daniel Tejeda PA-C's findings and plans as documented above. The patient is currently on guideline recommended medications. He will be fitted with a LifeVest prior to discharge. Continue the amiodarone at 200 mg twice daily until seen in the office. Potential cardioversion for the future as well as reevaluation of LV function as an outpatient before considering ICD placement.
[2017-06-16 11:48] VITALS: BP 123/80; PULSE 78; TEMP 36.3; O2SAT 97
[2017-06-16 11:56] VITALS: BP 103/62; PULSE 78; O2SAT 98
--- NOTE | 2017-06-16 14:10 | Progress Note ---
Medicine Progress Note Date & Time of Visit: Jun 16, 2017 at 14:04. Subjective seen resting in bed, comfortable states he feels better overall denies chest pain, dyspnea, dizziness, palpitations, weakness ambulates with no problems no other symptoms states he is ready and would like to be discharged today Objective Last 8 Hrs Date Time Temp Pulse Resp B/P (MAP) Pulse Ox O2 Delivery O2 Flow Rate FiO2 06/16/17 12:00 Room Air 06/16/17 11:56 78 98 06/16/17 11:48 36.3 78 16 123/80 (94) 97 Room Air 06/16/17 08:00 Room Air 06/16/17 07:27 36.7 74 16 125/81 (96) 97 Room Air Physical Exam: General- oriented x 3, not in distress, speaks in sentences with no effort Head- atraumatic Eyes- anicteric ENT- oropharynx clear Neck- supple, no JVD Lungs- clear breath sounds bilaterally Heart- regular rhythm; no murmur, normal rate Abdomen- normal bowel sounds, soft, nontender Extremities- no pretibial edema, no calf tenderness Neuro- alert, oriented x 3; no gross focal deficits Skin- warm & dry Assessment & Plan This is a 62 year old male with a PMH of HLD, GERD - presents with palpitations - subsequently found to have atrial fibrillation with RVR and later discovered a significantly reduced LVEF [place] Fibrillation with RVR patient presented with rates in the 150s-160s given IV Lopressor and then a Cardizem ggt rates improved to lower 100s transitioned to Amiodarone 400mg po TID--> then Amiodarone 200mg TID Metoprolol 50mg bid also started also started on Eliquis 5mg BID LifeVest provided for discharge tolerating medications well HR controlled plan for possible outpatient Direct Current Cardioversion after 3 weeks discharge plan: Amiodarone 200mg TID Metoprolol 50mg BID Eliquis 5mg BID ff up with Lining Cleaner in 3-5 days, Clinic to call patient Cardiomyopathy Systolic CHF likely a 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 echo shows an LVEF of 25-30% with severe global hypokinesis of the left ventricle should have a repeat echo some time as outpatient after heart rates are controlled will need stress test at some point due to risk factors (HLD, tobacco use) started on Lasix daily ,ETHAN-I as per cardiology euvolemic Discharge: Lasix 20mg po BID Potassium daily Lisinopril 10mg po daily continue Aspirin and Statin HLD on Statin GERD PPI DVT ppx Eliquis FULL CODE Disposition d/c home patient declined home health services ff up with PCP in 3-5 days ff up with L[facility] in 3-5 days Current Inpatient Medications: Current Inpatient Medications Medications (Trade) Dose Ordered Sig/Bruce Route Start Time Stop Time Status Last Admin Dose Admin Acetaminophen (Tylenol Tab) 650 mg Q4H PRN PO 06/08/17 18:45 07/08/17 18:44 Nitroglycerin (Nitrostat Tab) 0.4 mg UD PRN SL 06/08/17 18:45 07/08/17 18:44 Polyethylene (Miralax Powder Packet) 17 gm DAILY PRN PO 06/08/17 18:45 07/08/17 18:44 Aspirin (Ecotrin Tab) 81 mg DAILY PO 06/09/17 09:00 07/09/17 08:59 06/16/17 07:30 81 MG Atorvastatin Calcium (Lipitor Tab) 10 mg DAILY PO 06/09/17 09:00 07/09/17 08:59 06/16/17 07:30 10 MG Pantoprazole Sodium (Protonix Tab) 40 mg DAILY PO 06/09/17 09:00 07/09/17 08:59 06/16/17 07:30 40 MG Miscellaneous (Iv Fluids Completed) 1 ea PRN PRN N/A 06/08/17 21:00 06/08/18 20:59 Apixaban (Eliquis Tab) 5 mg BID PO 06/09/17 09:45 07/09/17 09:44 06/16/17 07:29 5 MG Furosemide (Lasix Tab) 20 mg BID17 PO 06/09/17 17:00 07/09/17 16:59 06/16/17 07:29 20 MG Potassium Chloride (Klor-Con Tab) 20 meq QAM PO 06/10/17 09:00 07/10/17 08:59 06/16/17 07:29 20 MEQ Lisinopril (Zestril Tab) 10 mg QAM PO 06/11/17 09:00 07/10/17 08:59 06/16/17 07:30 10 MG Metoprolol Tartrate (Lopressor Tab) 50 mg BID PO 06/13/17 21:00 07/11/17 13:59 06/16/17 07:29 50 MG Amiodarone HCl (Cordarone Tab) 400 mg TIDM PO 06/13/17 11:30 07/13/17 11:29 06/16/17 11:58 400 MG Metoprolol Tartrate (Lopressor Iv) 5 mg Q6H PRN IV 06/13/17 15:45 07/13/17 15:44
[2017-06-16] MEDS ORDERED: LSX20 PO (14:15)
[2017-06-16] MEDS ORDERED: CRD200 PO (14:15)
[2017-06-16] MEDS ORDERED: ELQ25 PO (14:15)
[2017-06-16] MEDS ORDERED: MCRK20 PO (14:15)
[2017-06-16] MEDS ORDERED: METO50TA16 PO (14:15)
[2017-06-16] MEDS ORDERED: LSN10 PO (14:15)
--- NOTE | 2017-06-16 14:24 | Discharge Instructions ---
Discharge Instructions Date of Service Jun 16, 2017. Admission Reason for Admission: Atrial Firbrillation With Rvr Discharge Discharge Diagnosis / Problem: ATRIAL FIBRILLATION Discharge Goals Goal(s): Diagnostic testing, Therapeutic intervention Activity Recommendations Activity Limitations: as noted below (NO HEAVY EXERTION UNTIL RE-EVALUATED BY MINE SAFETY ENGINEER) Lifting Limitations: gradually increase as tolerated Exercise/Sports Limitations: until after follow-up appointment Driving or Machine Use: NO DRIVING UNTIL RE-EVALUATED BY MINE SAFETY ENGINEER . Instructions / Follow-Up Instructions / Follow-Up PLEASE REVIEW YOUR NEW MEDICATION LIST AND FOLLOW INSTRUCTIONS CAREFULLY. YOU ARE NOW ON A BLOOD THINNER CALLED ELIQUIS. IF YOU HAVE ANY SIGNS OF BLEEDING , DO NOT TAKE THE ELIQUIS, AND PLEASE CONTACT YOUR DOCTOR IMMEDIATELY FOR ADVICE, OR GO TO THE ER. IF YOU HAVE ANY HEAD TRAUMA, GO TO THE ER IMMEDIATELY FOR EVALUATION. CALL YOUR PRIMARY CARE PHYSICIAN OR RETURN TO THE ER IF YOU HAVE: PALPITATIONS, SHORTNESS OF BREATH, CHEST PAIN, DIZZINESS, WEAKNESS. FOLLOW UP WITH DR. BROWN ON JUNE 21, 2017 AT 2:00PM. FOLLOW UP WITH MINE SAFETY ENGINEER JU WILLIAM/DR. DELCID IN 3-5 DAYS (THE CLINIC WILL CALL YOU FOR THE APPOINTMENT. CALL THEIR CLINIC IF YOU HAVE NOT RECEIVED ANY MESSAGE BY WEDNESDAY.) TEL. NO. Call your Primary Care doctor if any of the following symptoms or problems start or get worse: * Shortness of breath or difficulty breathing * Wake up at night short of breath * Chest pain * Cough * Swelling of your hands, feet, or legs * More fatigued or tired with your normal activity * Palpitations - sudden fast heart beats WEIGHT * Weigh yourself every morning after using the bathroom. * Use the same scale. * Wear the same amount of clothing. * Write your weight down on a chart. * Call your Primary Care doctor if you gain more than 2-3 pounds in 1-2 days. MEDICATIONS * Use this discharge instruction sheet for medication instructions. * Take your medications at the time your doctor ordered. * Do not skip a dose of your medicines. * If you miss a dose of medicine, take it as soon as possible, but DO NOT DOUBLE A DOSE. * Read your medicine information when you get home. * Know all of the side effects of your medicine. If in doubt, ask your pharmacist * Call your Primary Care doctor's office if you have any side effects. * Be sure all of your doctors know what medicine and herbs you take (including cold, flu, and herbal medicine). Take the following with you to your follow-up doctor appointments: * Weight Chart * Medication List * List of questions Do not drink excessive alcohol, beer or wine. Current Hospital Diet Patient's current hospital diet: AHA Diet (Heart Healthy) Discharge Diet Recommended Diet: AHA Diet (Heart Healthy) Procedures Procedures Performed: CHEST XRAY. ECHOCARDIOGRAM Pending Studies Studies pending at discharge: no Medical Emergencies . Who to Call and When: Call 911 or go to the Emergency Room if: * If at any time you feel your situation is an emergency * You have tightness or pain in your chest that does not go away with rest or Nitroglycerin * You are very short of breath even with rest . Non-Emergent Contact Non-Emergency issues call your: Primary Care Provider, Electric Switch Repairer Call Non-Emergent contact if: you have a fever, you have any medication questions . . "Provider Documentation" section prepared by Mitch White. .
--- NOTE | 2017-06-16 14:28 | Discharge Summary ---
Discharge Summary Date of Service Jun 16, 2017. Discharge Summary Admission Date: Jun 09, 2017 at 10:35 Discharge Date: Jun 16, 2017 Discharge Disposition: Home Principal Diagnosis: New Onset [place] Fibrillation with RVR Secondary Diagnoses/Problems: Please refer to hospital course below. Procedures: CHEST ONE VIEW PORTABLE CLINICAL HISTORY: Chest pain. Shortness of breath. COMPARISON STUDY: No previous studies for comparison. FINDINGS: Lung volumes are normal. There are small bilateral pleural effusions. There is no pneumothorax. There is mild interstitial thickening which suggests pulmonary edema. There is no consolidation to suggest pneumonia. There is mild cardiomegaly. IMPRESSION: Mild pulmonary edema and small bilateral pleural effusions. Electronically signed by: Schuyler Vera M.D. 06/08/2017 4:34 PM ECHO: Interpretation Summary * Name: OPAL BOWEN Study Date: 06/09/2017 07:02 AM BP: 106/70 mmHg * Patient Location: [facility] HR: 88 * : 1955 (M/d/yyyy) Gender: Male Height: 72 in * Age: 62 yrs Ethnicity: GA Weight: 191 lb * Ordering Physician: Mallika Maloney * Referring Physician: Self, Referred * Performed By: Asuncion Brewer RDCS * * Reason For Study: A-fib * BSA: 2.1 m2 * -- Conclusions -- * Mildly dilated LV chamber size with normal wall thickness. * Severely reduced LV systolic function with severe global hypokinesis, EF 25 -30%. * Normal RV chamber size with reduced systolic function by TAPSE. * Moderate mitral regurgitation. * Moderate tricuspid regurgitation. * Mild biatrial enlargement. Consultations: International Marketing Intern Dr. Robles, JU William Pending Studies/Follow-Up: Please refer to hospital course below. Medication Reconciliation New Medications: Amiodarone HCl (Amiodarone HCl) 200 Mg Tab 200 MG PO TIDM for 30 Days, #90 TAB 2 Refills Apixaban (Eliquis) 2.5 Mg Tab 5 MG PO BID for 30 Days, #120 TAB 2 Refills Furosemide (Furosemide) 20 Mg Tab 20 MG PO BID17 for 30 Days, #60 TABS 2 Refills Lisinopril (Zestril) 10 Mg Tab 10 MG PO QAM for 30 Days, #30 TAB 2 Refills Metoprolol Tartrate (Lopressor) (Lopressor) 50 Mg Tab 50 MG PO BID for 30 Days, #60 TAB 2 Refills Potassium Chloride (Klor-Con M20) 20 Meq Tabcr 20 MEQ PO QAM for 30 Days, #30 TAB 2 Refills Continued Medications: Aspirin (Aspirin Ec) 81 Mg Tab 81 MG PO DAILY Atorvastatin (Lipitor) 10 Mg Tab 10 MG PO DAILY, TAB Omeprazole (Prilosec) 20 Mg Capcr 20 MG PO DAILY, CAP TAKE THIS MEDICATION ONCE DAILY 30 MINUTES BEFORE FIRST MEAL OF THE DAY Admission Information HPI (per Admitting provider): Pt is 62 y/o M with PMH dyslipidemia, GERD presented to ER from PCP's office for tachycardia. States yesterday woke up with palpitations and heart racing sensation that was continuous. Symptoms continued today. 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 Reports some anterior chest pressure. Reports increased CP and SOB with lying supine. Last night had to sleep sitting up secondary to SOB. Denies dizziness or syncope. Also c/o nausea since yesterday, no vomiting. States yesterday had 2 loose BM's , today reports normal BM. Denies melena or hematochezia or abdominal pain. Reports non-productive cough past 3 days. Woke up this morning and noticed bilateral foot edema. Pt with 8 pound weight gain over past month. Feels hasn't been urinating as much past 2 days. Denies cardiac or pulmonary problems in past. Drinking 4-5 bottles water daily. States normal appetite. Drinks 2 cups coffee daily. Has been taking mucinex past couple of days for cough. Denies ETOH use. Stopped smoking one week ago. Was smoking 4 cigarettes daily. Denies fever/chills, diaphoresis, KIMBALL, dizziness, syncope, vision changes, neck pain, hemoptysis, sore throat, choking, otalgia, rhinorrhea, paresthesias,rashes. In ER pt found to be in rapid a-fib rate 130's to 180's down to 130's after cardizem. Pt given cardizem 10mg, additional 10mg and on cardizem drip at 15/ hr. BP: 160/107 to 163/76 to 146/113. O2 sat initially 95% on RA, then to 90%, up to 94% on 3L NC. troponin 0.02. Since in ER and having decreased HR on Cardizem drip, pt states the CP and nausea has resolved Physical Exam (per Admitting): General Appearance: WD/WN, no apparent distress Head: normocephalic, atraumatic Eyes: normal inspection, PERRL, EOMI, sclerae normal ENT: hearing grossly normal, pharynx normal, + pertinent finding (slightly dry mucous membranes) Neck: supple, trachea midline Respiratory/Chest: chest non-tender, no respiratory distress, no accessory muscle use, + decreased breath sounds (bases bilaterally) Cardiovascular: + tachycardia, + irregularly irregular Abdomen/GI: normal bowel sounds, non tender, soft Extremities/Musculoskelatal: no calf tenderness, normal capillary refill, normal range of motion, non-tender, + pedal edema (2+ pitting edema pretibial bilaterally) Neurologic/Psych: alert, normal mood/affect, oriented x 3 Skin: warm/dry, + pertinent finding (+exoriations to left anterior upper chest/shoulder and upper back (pt states scratched himself). no surrounding erythema, no discharge) Hospital Course This is a 62 year old male with a PMH of HLD, GERD - presents with palpitations - subsequently found to have atrial fibrillation with RVR and later discovered a significantly reduced LVEF [place] Fibrillation with RVR patient presented with rates in the 150s-160s given IV Lopressor and then a Cardizem ggt rates improved to lower 100s transitioned to Amiodarone 400mg po TID--> then Amiodarone 200mg TID Metoprolol 50mg bid also started also started on Eliquis 5mg BID LifeVest provided for discharge tolerating medications well HR controlled plan for possible outpatient Direct Current Cardioversion after 3 weeks discharge plan: Amiodarone 200mg TID Metoprolol 50mg BID Eliquis 5mg BID ff up with International Marketing Intern in 3-5 days, Clinic to call patient Cardiomyopathy Systolic CHF likely a 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 echo shows an LVEF of 25-30% with severe global hypokinesis of the left ventricle should have a repeat echo some time as outpatient after heart rates are controlled will need stress test at some point due to risk factors (HLD, tobacco use) started on Lasix daily ,ETHAN-I as per cardiology remained euvolemic Discharge: Lasix 20mg po BID Potassium daily Lisinopril 10mg po daily continue Aspirin and Statin HLD on Statin GERD PPI DVT ppx Eliquis Disposition d/c home patient declined home health services ff up with PCP in 3-5 days ff up with International Marketing Intern in 3-5 days Total time spent on discharge = 40 minutes This includes examination of the patient, discharge planning, medication reconciliation, and communication with other providers. Discharge Instructions Discharge Instructions Date of Service Jun 16, 2017. Admission Reason for Admission: Atrial Firbrillation With Rvr Discharge Discharge Diagnosis / Problem: ATRIAL FIBRILLATION Discharge Goals Goal(s): Diagnostic testing, Therapeutic intervention Activity Recommendations Activity Limitations: as noted below (NO HEAVY EXERTION UNTIL RE-EVALUATED BY DIETARY SERVICES MANAGER) Lifting Limitations: gradually increase as tolerated Exercise/Sports Limitations: until after follow-up appointment Driving or Machine Use: NO DRIVING UNTIL RE-EVALUATED BY DIETARY SERVICES MANAGER . Instructions / Follow-Up Instructions / Follow-Up PLEASE REVIEW YOUR NEW MEDICATION LIST AND FOLLOW INSTRUCTIONS CAREFULLY. YOU ARE NOW ON A BLOOD THINNER CALLED ELIQUIS. IF YOU HAVE ANY SIGNS OF BLEEDING , DO NOT TAKE THE ELIQUIS, AND PLEASE CONTACT YOUR DOCTOR IMMEDIATELY FOR ADVICE, OR GO TO THE ER. IF YOU HAVE ANY HEAD TRAUMA, GO TO THE ER IMMEDIATELY FOR EVALUATION. CALL YOUR PRIMARY CARE PHYSICIAN OR RETURN TO THE ER IF YOU HAVE: PALPITATIONS, SHORTNESS OF BREATH, CHEST PAIN, DIZZINESS, WEAKNESS. FOLLOW UP WITH DR. BROWN ON JUNE 21, 2017 AT 2:00PM. FOLLOW UP WITH DIETARY SERVICES MANAGER JU WILLIAM/DR. ROBLES IN 3-5 DAYS (THE CLINIC WILL CALL YOU FOR THE APPOINTMENT. CALL THEIR CLINIC IF YOU HAVE NOT RECEIVED ANY MESSAGE BY WEDNESDAY.) TEL. NO. Call your Primary Care doctor if any of the following symptoms or problems start or get worse: * Shortness of breath or difficulty breathing * Wake up at night short of breath * Chest pain * Cough * Swelling of your hands, feet, or legs * More fatigued or tired with your normal activity * Palpitations - sudden fast heart beats WEIGHT * Weigh yourself every morning after using the bathroom. * Use the same scale. * Wear the same amount of clothing. * Write your weight down on a chart. * Call your Primary Care doctor if you gain more than 2-3 pounds in 1-2 days. MEDICATIONS * Use this discharge instruction sheet for medication instructions. * Take your medications at the time your doctor ordered. * Do not skip a dose of your medicines. * If you miss a dose of medicine, take it as soon as possible, but DO NOT DOUBLE A DOSE. * Read your medicine information when you get home. * Know all of the side effects of your medicine. If in doubt, ask your pharmacist * Call your Primary Care doctor's office if you have any side effects. * Be sure all of your doctors know what medicine and herbs you take (including cold, flu, and herbal medicine). Take the following with you to your follow-up doctor appointments: * Weight Chart * Medication List * List of questions Do not drink excessive alcohol, beer or wine. Current Hospital Diet Patient's current hospital diet: AHA Diet (Heart Healthy) Discharge Diet Recommended Diet: AHA Diet (Heart Healthy) Procedures Procedures Performed: CHEST XRAY. ECHOCARDIOGRAM Pending Studies Studies pending at discharge: no Medical Emergencies . Who to Call and When: Call 911 or go to the Emergency Room if: * If at any time you feel your situation is an emergency * You have tightness or pain in your chest that does not go away with rest or Nitroglycerin * You are very short of breath even with rest . Non-Emergent Contact Non-Emergency issues call your: Primary Care Provider, International Marketing Intern Call Non-Emergent contact if: you have a fever, you have any medication questions . . "Provider Documentation" section prepared by Mitch White. .
[2017-06-16 15:11] VITALS: BP 103/62; PULSE 78; TEMP 36.3; O2SAT 98
== END 2017-06-16 15:34 | disposition home or self-care (01) | DRG 308 ==
LOC: C.EDB 15:56 → C.2T 18:40 → ENRESERV 18:53 → OBSVTOIN 06-09 10:35
PROVIDERS: ADMIT Hospitalist; ATTEND Internal Medicine
DX: I48.1 Persistent atrial fibrillation (principal); I50.23 Acute on chronic systolic (congestive) heart failure; I42.0 Dilated cardiomyopathy; I08.1 Rheumatic disorders of both mitral and tricuspid valves; E87.6 Hypokalemia; E78.5 Hyperlipidemia, unspecified; K21.9 Gastro-esophageal reflux disease without esophagitis; Z87.891 Personal history of nicotine dependence; Z79.82 Long term (current) use of aspirin; Z79.899 Other long term (current) drug therapy; Z82.49 Family history of ischemic heart disease and other diseases of the circulatory system

== ENCOUNTER → 2017-07-16 | Day surgery (SDC) | payer OTHER ==
[~2017-07-16] VITALS: Ht 182.9 cm; Wt 75.0 kg
[~2017-07-16] MED LIST changes: +ASPI81TA28 PO; +ATOR10TA82 PO; +CRD200 PO; +ELQ25 PO; +LIDOCAINE HCL 2% 2 ML VIAL (20MG/ML) ONE; +LSN10 PO; +LSX20 PO; +MCRK20 PO; +METO50TA16 PO; -OMEP20CA59 PO; +PRLSR20 PO; +PROPOFOL IV EMULSION 10 MG/ML 20 ML VIAL IV ONE
[2017-07-16 07:08] VITALS: BP 151/119; PULSE 95; TEMP 36.9; O2SAT 98; Ht 182.9 cm; Wt 75.0 kg
[2017-07-16 07:30] VITALS: BP 126/93; PULSE 108; O2SAT 97
[2017-07-16 07:35] VITALS: BP 115/83; PULSE 51; O2SAT 97
--- NOTE | 2017-07-16 07:43 | Discharge Instructions ---
Discharge Instructions Procedure Procedure Date: Jul 16, 2017. Reason for Visit: W/Anesthesia A Fib * To Do*. Discharge Discharge Date: Jul 16, 2017. Discharge Diagnosis: Same Last Recorded Wt (Kilograms): 75 Anesthesia Post Anesthesia Instructions: If you have had General Anesthesia or IV Sedation: * Do not drive today. * Resume driving when surgeon permits. * Do not make important decisions or sign legal documents today. * Call surgeon for: 1. Temperature elevations greater than 101 degrees F. 2. Uncontrollable pain. 3. Excessive bleeding. 4. Persistent nausea and vomiting. 5. Medication intolerance (nausea, vomiting or rash). * For nausea and vomiting use only clear liquids such as: tea, soda, bouillon until nausea subsides, then gradually increase diet as tolerated. * If you have any concerns or questions, call your surgeon's office. If physician is unavailable and it is an emergency, call 911 or go to the nearest emergency room. Instructions Activity Recommendations: no limitations Recommended Home Diet: resume previous diet Allergies: Coded Allergies: No Known Allergies (Unverified , 06/08/17) Provider Instructions ACTIVITY RECOMMENDATIONS: * May resume driving tomorrow. SPECIAL CARE: * May apply burn ointment for skin irritation. * Please contact physician for any lightheadedness, dizziness or palpitations. Follow Up Follow-up with: Follow-up with Dr. Robles as previous;y scheduled. [facility] Recommendations: Call your doctor if: * Temperature above 101 degrees * Pain not relieved by pain medicine ordered * There is increased drainage or redness from any incision * You have any unanswered questions or concerns. Your Doctors Instructions noted above were prepared by provider Colt Robles. Patient Signature Section: Patient Instructions Signature Page Barber Gonzalez Patient (or Guardian) Signature/Date: I have read and understand the instructions given to me by my caregivers. Caregiver/RN/Doctor Signature/Date: The above-named patient and/or guardian has received patient instructions on this date. + Original Patient Signature Page (only) stays with chart. Please make copy for patient.
--- NOTE | 2017-07-16 07:48 | CARDIOVERSION ---
DATE OF OPERATION: 07/16/2017 PROCEDURE: Cardioversion. PROCEDURE SUMMARY: The patient was seen and evaluated in the holding area of the laboratory sample carrier. After informed consent was obtained, sedation by given by anesthesia. The patient then received a synchronized cardioversion with 200 joules of energy which converted him to normal sinus rhythm. The patient remained stable after the procedure and was recovered in the holding area of the laboratory sample carrier. I attest to the content of the Intraoperative Record and any orders documented therein. Any exception s are noted below.
[2017-07-16 08:45] VITALS: BP 110/78; PULSE 55; O2SAT 98
--- NOTE | 2017-07-16 09:11 | Anesthesiology Progress Note ---
Anesthesia Post Op Note Date & Time Jul 16, 2017 at 09:11 Vital Signs Pain Intensity: 0 Vital Signs Past 12 Hours Date Time Temp Pulse Resp B/P (MAP) Pulse Ox O2 Delivery O2 Flow Rate FiO2 07/16/17 08:45 55 16 105/75 (85) 98 Room Air 110/78 (89) 07/16/17 08:30 56 16 102/70 (81) 94 Room Air 07/16/17 08:15 54 16 96/61 (73) 94 Room Air 07/16/17 08:01 49 16 105/75 (85) 94 Room Air 07/16/17 07:51 49 16 100/79 (86) 94 Room Air 07/16/17 07:41 49 16 106/81 (89) 94 Room Air 07/16/17 07:35 51 18 115/83 97 Room Air 07/16/17 07:30 108 18 126/93 97 Room Air 07/16/17 07:08 36.9 95 16 151/119 (130) 98 Room Air Notes Mental Status: alert / awake / arousable, participated in evaluation Pt Amnestic to Procedure: Yes Nausea / Vomiting: adequately controlled Pain: adequately controlled Airway Patency, RR, SpO2: stable & adequate BP & HR: stable & adequate Hydration State: stable & adequate Anesthetic Complications: no major complications apparent
== END | disposition home or self-care (01) ==
LOC: C.CATH 06:42
PROVIDERS: ATTEND Internal Medicine Interventional Cardiology
DX: I48.1 Persistent atrial fibrillation (principal); I42.8 Other cardiomyopathies; I50.20 Unspecified systolic (congestive) heart failure; E78.5 Hyperlipidemia, unspecified; K21.9 Gastro-esophageal reflux disease without esophagitis; I34.0 Nonrheumatic mitral (valve) insufficiency; M54.42 Lumbago with sciatica, left side; Z79.899 Other long term (current) drug therapy; Z87.891 Personal history of nicotine dependence; Z82.49 Family history of ischemic heart disease and other diseases of the circulatory system; Z79.01 Long term (current) use of anticoagulants